=== PATIENT | male | born 1955 | race Caucasian/White ===

== ENCOUNTER 2019-04-08 02:14 | Outpatient (CLI) | payer MEDICAID, SELFPAY ==
--- NOTE | 2019-04-14 12:48 | HOLTER_ITS ---
HOLTER MONITOR DATE OF DICTATION April 14, 2019 STUDY INDICATIONS: Palpitations. REQUESTING PROVIDER Estrada Brito M.D. FINDINGS The patient was monitored for two days. Baseline sinus rhythm. Average heart rate 73 beats per minute, range 44 to 130 beats per minute. Occasional PVCs, 1197. No VT. Rare PACs. 2 atrial runs, longest 5 beats, fastest 127 beats per minute. No pauses greater than 3 seconds. No higher degree heart block. 6 patient events, none of these events correlated with arrhythmias. FINAL INTERPRETATION Occasional PVCs, asymptomatic. Tay Blunt M.D. KAIDEN/eliseo T - 04/14/2019
== END 2019-04-08 02:34 ==
PROVIDERS: PCP Family Medicine; Visit Provider Family Medicine
DX: R00.2 Palpitations (principal); I49.3 Ventricular premature depolarization; I49.1 Atrial premature depolarization
CPT/HCPCS: 93225

== ENCOUNTER 2019-04-13 16:31 | Outpatient (CLI) | payer MEDICAID, SELFPAY | END 2019-04-13 16:51 | PROVIDERS: PCP Family Medicine; Visit Provider Family Medicine | DX: R00.2 Palpitations (principal); I49.3 Ventricular premature depolarization; I49.1 Atrial premature depolarization | CPT/HCPCS: 93226 ==

== ENCOUNTER 2019-12-10 08:02 | Outpatient (CLI) | payer MEDICAID, SELFPAY ==
[2019-12-10] MEDS: Inhaler, Assist Device 1 EACH MC (11:50)
[2019-12-10] MEDS: Albuterol HFA 18 GM 200 PUFF INH IH (11:51)
--- NOTE | 2019-12-10 13:12 | PFT_ITS ---
PULMONARY FUNCTION TEST REPORT DATE OF SERVICE: December 10, 2019 REQUESTING PROVIDER: Estrada Brito M.D. Spirometry shows no evidence of obstructive airways disease, no bronchodilator response. Lung volumes incomplete testing, patient declined to do plethysmography due to claustrophobia. Flow vital capacity was normal. Diffusion capacity normal. Airways resistance not measured. IMPRESSION: No evidence of obstructive airways disease. One cannot comment on possible underlying restriction without total lung capacity measurement. Clinical correlation therefore recommended. JONATAN/carlos eduardo D/
== END 2019-12-10 08:22 ==
PROVIDERS: PCP Family Medicine; Visit Provider Family Medicine
DX: R06.00 Dyspnea, unspecified (principal)
CPT/HCPCS: 94060; 94729

== ENCOUNTER 2020-04-19 11:17 | Outpatient (CLI) | payer MEDICAID, SELFPAY ==
--- NOTE | 2020-04-19 09:45 | DI.RAD_ITS ---
EXAM: XR KNEE RT 2V AP,LAT CLINICAL HISTORY: right knee pain TECHNIQUE: COMPARISON: No exams were available for comparison FINDINGS: Two views were obtained. There is narrowing of the medial tibiofemoral cartilaginous joint space. R emainder of the cartilaginous joint spaces appear fairly well maintained. There is a probable small anteriorly located loose joint body seen on lateral view. No bony abnormality seen. IMPRESSION: DJD medial tibiofemoral joint, probable small loose joint body.
== END 2020-04-19 11:37 ==
PROVIDERS: PCP Family Medicine; Referring Provider Family Medicine; Visit Provider Physician Assistant
DX: M25.561 Pain in right knee (principal); M23.41 Loose body in knee, right knee; M17.11 Unilateral primary osteoarthritis, right knee
CPT/HCPCS: 73560

== ENCOUNTER 2020-05-23 10:22 | Outpatient (REF) | payer MEDICAID, SELFPAY | END 2020-05-23 10:42 | LOC: LBN 10:22 | PROVIDERS: PCP Family Medicine; Visit Provider Urology | DX: N40.1 Benign prostatic hyperplasia with lower urinary tract symptoms (principal) | CPT/HCPCS: 84153 ==

== ENCOUNTER 2021-01-04 02:54 | Outpatient (CLI) | payer MEDICAID, SELFPAY ==
[2021-01-04 09:27] LABS: Calculated LDL 144 mg/dL (<100); Cholesterol 214 mg/dL (<200); HDL Cholesterol 39 mg/dL (40-60); Triglyceride 158 mg/dL (<150)
== END 2021-01-04 02:55 | disposition home or self-care (01) ==
LOC: LBO 02:54
PROVIDERS: Nurse Practitioner Family; PCP Family Medicine; Visit Provider Family Medicine
DX: E78.5 Hyperlipidemia, unspecified (principal); N40.1 Benign prostatic hyperplasia with lower urinary tract symptoms; R39.14 Feeling of incomplete bladder emptying; Z12.5 Encounter for screening for malignant neoplasm of prostate
CPT/HCPCS: 36415; 80061; 84154

== ENCOUNTER 2021-02-02 05:00 | Outpatient (CLI) | payer MEDICAID, SELFPAY ==
--- NOTE | 2021-02-02 08:30 | DI.MRI_ITS ---
EXAM: MR LOWER JOINT RT WO CLINICAL HISTORY: KNEE PAIN, INTERNAL DERANGEMENT,M 23.91. TECHNIQUE: Multiplanar multisequence MRI was performed. COMPARISON: CR XR KNEE RT 2V AP,LAT from 04/19/2020 FINDINGS: There is a large joint effusion. A bony projection is seen the anterior tibia, anterior to the ACL attachment. There is a bony density seen in the soft tissues superior to this level which does not a ppear to be within the joint space. There is some fluid within the anterior cruciate ligament but no evidence of a full-thickness tear. The collateral ligaments and extensor mechanism appear intact. The lateral meniscus appears intact. The body of the medial meniscus is diminutive and peripherally displaced. There is a large amount of abnormal high signal seen with seen within the body. There is a focal radially oriented tear in the body. Cartilage: There is a focal linear defect in the cartilage at the apex of the patella extending down to but not involving underlying bone. There is cartilage thinning extending down to bone involving me dial femoral condyle and medial tibial plateau. There is some adjacent bony edema. The cartilage over lying the lateral femoral condyle and lateral tibial plateau appear intact. IMPRESSION: Degenerative changes of the medial femoral tibial joint space a chondromalacia extending down to bone . There are degenerative changes of the medial meniscus with superimposed tear in the body. A large j oint effusion is seen. There is a small small focal cartilage defect at the apex of the patella. DATA REPOSITORY:
== END 2021-02-02 05:20 ==
PROVIDERS: PCP Family Medicine; Visit Provider Student in an Organized Health Care Education/Training Program
DX: M17.11 Unilateral primary osteoarthritis, right knee (principal); M25.461 Effusion, right knee; S83.241A Other tear of medial meniscus, current injury, right knee, initial encounter
CPT/HCPCS: 73721

== ENCOUNTER 2021-02-27 09:52 | Outpatient (REF) | payer MEDICAID, SELFPAY ==
[2021-02-27 13:22] LABS: Abs Immature Grans 0.01 10^3/uL (0.0-0.06); Absolute Basophil Count 0.05 10^3/uL (0.0-0.2); Absolute Eosinophil Count 0.17 10^3/uL (0.0-0.7); Absolute Lymphocyte Count 2.73 10^3/uL (1.2-3.4); Absolute Monocyte Count 0.42 10^3/uL (0.1-0.8); Absolute Neutrophil Count 2.23 10^3/uL (1.2-6.7); Basophils % 0.9; HCT 46.6 % (40.0-50.0); HGB 15.4 g/dL (13.5-17.5); Immature Grans % 0.2; Lymphocytes % 48.7; MCH 31.8 pg (27.0-33.0); MCV 96.1 fL (80-95); MPV 10.3 fL (8.0-11.0); Monocytes % 7.5; Neutrophils % 39.7; Nucleated RBC 0 %; Platelet Count 188 10^3/uL (130-400); RBC 4.85 10^6/uL (4.36-5.78); RDW 12.4 % (11.8-14.1); RDW-SD 43.3 fL; WBC 5.61 10^3/uL (4.4-10.8)
[2021-02-27 13:31] LABS: ESR 6 mm//hr (0-20)
[2021-02-27 13:45] LABS: ALT 46 U/L (16-63); AST 30 U/L (15-37); Albumin 4.3 g/dL (3.4-5.0); Alkaline Phosphatase 87 U/L (46-116); Anion Gap 9.3 mmol/L (3-11); BUN 21 mg/dL (7-18); Bilirubin, Total 0.6 mg/dL (0.2-1.0); C-Reactive Protein 0.07 mg/dL (0.0-0.3); CO2 26.7 mmol/L (21.0-32.0); CREATININE 1.2 mg/dL (0.70-1.30); Calcium 9.3 mg/dL (8.5-10.1); Chloride 108 mmol/L (98-107); Glucose 99 mg/dL (74-106); Potassium 4.5 mmol/L (3.5-5.1); Sodium 144 mmol/L (136-145)
[2021-02-28 15:09] LABS: ANA Interpretation Negative (Negative)
== END 2021-02-27 09:53 | disposition home or self-care (01) ==
LOC: LBN 09:52
PROVIDERS: PCP Family Medicine; Visit Provider Emergency Medicine
DX: M25.59 Pain in other specified joint (principal); T69.1XXD Chilblains, subsequent encounter
CPT/HCPCS: 80053; 85652; 85025; 86038; 86140

== ENCOUNTER 2022-01-03 14:28 | Outpatient (CLI) | payer MEDICAID, SELFPAY ==
--- NOTE | 2022-01-03 14:00 | DI.RAD_ITS ---
Exam(s) XR KNEE RT 1V XR STANDING ALIGNMENT EXAM: XR STANDING ALIGNMENT and XR knee RT 1 V CLINICAL HISTORY: PRE OP R TKA. TECHNIQUE: 2D digital imaging was performed. COMPARISON: CR XR KNEE RT 1V from 01/03/2022 FINDINGS: BONES: No acute fracture is present. No bony destructive lesion is seen. There are degenerative maya es of the right knee with joint space narrowing and periarticular spurring predominantly in the media l femoral tibial joint space. There is a right knee joint effusion. There is a well corticated osse ous density anterior to the tibial spine on the lateral view of the right knee which may represent a loose body. The left knee shows mild narrowing of the medial joint space. There is no significant l eg length discrepancy. SOFT TISSUE: There are surgical clips inferior to the pelvis likely reflecting prior vasectomy. IMPRESSION: Osteoarthritis of the right knee. DATA REPOSITORY: RADIATION DOSE DELIVERED:
== END 2022-01-03 14:29 | disposition home or self-care (01) ==
LOC: DIORS 14:28
PROVIDERS: PCP Family Medicine; Referring Provider Family Medicine; Visit Provider Physician Assistant Surgical
DX: M25.561 Pain in right knee (principal); M17.11 Unilateral primary osteoarthritis, right knee; M25.461 Effusion, right knee; M23.8X1 Other internal derangements of right knee
CPT/HCPCS: 73560; 77073

== ENCOUNTER 2022-01-14 02:03 | Outpatient (CLI) | payer MEDICAID, SELFPAY ==
[2022-01-14 08:53] LABS: HCT 44.9 % (40.0-50.0); HGB 14.5 g/dL (13.5-17.5); MCH 31.4 pg (27.0-33.0); MCHC 32.3 % (32.0-36.0); MCV 97.2 fL (80-95); MPV 9.8 fL (8.0-11.0); Platelet Count 163 10^3/uL (130-400); RBC 4.62 10^6/uL (4.36-5.78); RDW 12.8 % (11.8-14.1); RDW-SD 45.2 fL; WBC 5.56 10^3/uL (4.4-10.8)
[2022-01-14 09:26] LABS: Anion Gap 6.6 mmol/L (3-11); BUN 19 mg/dL (7-18); CO2 29.4 mmol/L (21.0-32.0); CREATININE 1.2 mg/dL (0.70-1.30); Calcium 8.8 mg/dL (8.5-10.1); Chloride 105 mmol/L (98-107); Glucose 113 mg/dL (74-106); Potassium 4.8 mmol/L (3.5-5.1); Sodium 141 mmol/L (136-145)
== END 2022-01-14 02:04 | disposition home or self-care (01) ==
LOC: LBO 02:03
PROVIDERS: PCP Family Medicine; Visit Provider Student in an Organized Health Care Education/Training Program
DX: Z01.818 Encounter for other preprocedural examination; M25.561 Pain in right knee; M23.8X1 Other internal derangements of right knee; Z01.812 Encounter for preprocedural laboratory examination
CPT/HCPCS: 36415; 80048; 85027

== ENCOUNTER 2022-01-14 03:03 | Outpatient (CLI) | payer MEDICAID, SELFPAY ==
[2022-01-14 10:36] LABS: Source Nasal/Nares
[2022-01-14 14:08] LABS: COVID-19 PCR Negative (Negative)
== END 2022-01-14 03:04 | disposition home or self-care (01) ==
LOC: LBO 03:03
PROVIDERS: PCP Family Medicine; Visit Provider Student in an Organized Health Care Education/Training Program
DX: Z20.822 Contact with and (suspected) exposure to COVID-19 (principal); Z01.818 Encounter for other preprocedural examination
CPT/HCPCS: 87635

== ENCOUNTER 2022-01-15 07:50 | Day surgery (SDC) | payer MEDICAID, SELFPAY ==
[2022-01-15] VITALS (10 sets, daily range): BP systolic 106–135; BP diastolic 64–95; PULSE 54–72; RESP 13–19; TEMP 36–36.4; O2SAT 94–100; BMI 25.9
--- NOTE | 2022-01-15 06:20 | W.ANESPRE ---
General Info Date of Service Date Performed: 01/15/22 Height: 6 ft 1 in Weight: 89.358 kg Body Mass Index (BMI): 25.9 Surgical Procedure: Operation Date: 01/15/22 09:55 Proposed Procedure Side Surgeon p Knee Total Arthroplasty Right Tacho Levi MD Meds Allergies and Home Medications Allergies Allergy/AdvReac Type Severity Reaction Status Date / Time chocolate flavor Allergy Severe RASH, H/A Verified 01/15/22 08:10 vardenafil HCl [From Levitra] Allergy Severe SWELLING, Verified 01/15/22 08:10 FLUSHING hydrocodone bitartrate AdvReac Severe H/A Verified 01/15/22 08:10 [From Vicodin] sertraline AdvReac Severe TREMOR Verified 01/15/22 08:10 ezetimibe [From Zetia] AdvReac Intermediate dizziness Verified 01/15/22 08:10 lovastatin AdvReac Mild MYALGIAS Verified 01/15/22 08:10 Aylwgog-QBV-LyX Reductase AdvReac Mild severe Verified 01/15/22 08:10 Inhibitor muscle [Tjeazoa-Klz-Qbe Reductase cramps at Inhibitor] bedtime lactose AdvReac Unknown INTOLERANT Verified 01/15/22 08:10 Home Medication Medication Instructions Recorded ginkgo biloba leaf extract 60 mg 60 mg PO DAILY 03/15/14 tablet echinacea purpurea root 80 mg 80 mg PO BID PRN 10/24/14 capsule ibuprofen-diphenhydramine citrate 1 ea PO hs prn 10/24/14 200 mg-38 mg tablet (Advil PM) acetaminophen 500 mg tablet 1,000 mg PO Q4H PRN tab-cap 01/31/17 ibuprofen 400 mg tablet 400 mg PO Q6H PRN tab-cap 01/31/17 hydrocortisone 2.5 % topical cream 1 chauncey RC BID prn #30 g 03/26/17 with perineal applicator naproxen 500 mg tablet 500 mg PO BID PRN #60 tab 05/26/20 epinephrine 0.3 mg/0.3 mL 0.3 mg (0.3 mL) IM ONCE PRN #1 06/30/20 injection, auto-injector syringe omeprazole 20 mg capsule,delayed 20 mg PO DAILY #90 cap 01/26/21 release amlodipine 5 mg tablet 5 mg PO DAILY #90 tab 02/27/21 lorazepam 1 mg tablet See Rx Instructions PO BID PRN #30 07/04/21 tab tamsulosin 0.4 mg capsule 0.8 mg PO DAILY #180 cap 10/23/21 aspirin 81 mg capsule 81 mg PO DAILY 01/03/22 Current Visit Medications: Current Medications Generic Name Dose Route Start Last Admin Trade Name Freq PRN Reason Stop Dose Admin Acetaminophen 1,000 mg 01/15/22 06:00 Acetaminophen 500 Mg Tab PO 01/15/22 18:00 PREOP LEIGHTON Celecoxib 400 mg 01/15/22 06:00 Celecoxib 200 Mg Cap PO 01/15/22 18:00 PREOP LEIGHTON Gabapentin 300 mg 01/15/22 06:00 Gabapentin 300 Mg Cap PO 01/15/22 18:00 PREOP LEIGHTON Tranexamic Acid 1,000 mg/ 60 mls @ 360 mls/hr 01/15/22 06:00 Sodium Chloride IVPB 01/15/22 18:00 PREOP LEIGHTON Tranexamic Acid 1,000 mg/ 60 mls @ 360 mls/hr 01/15/22 06:00 Sodium Chloride IVPB 01/15/22 18:00 DIRECTED LEIGHTON PFSH Active Problems Active Problems: Problem Status Onset Code Skin lesions, generalized L98.9 Lower extremity neuropathy G57.90 Screening for colon cancer Z12.11 Ischemia of foot I99.8 Frostbite of foot T33.829A BPH (benign prostatic hyperplasia) N40.0 Actinic Keratosis L57.0 Internal derangement of right knee ~01/2020 M23.91 Degenerative joint disease of right knee ~01/2020 M17.11 Lower urinary tract symptoms (LUTS) R39.9 Diastasis recti M62.08 Dyspnea R06.00 Insomnia G47.00 Genital herpes simplex A60.00 Peyronie's disease 10/05/13 N48.6 Chilblains T69.1XXA Palpitations R00.2 Depressive disorder 10/16/99 F32.9 Erectile dysfunction 10/21/14 N52.9 Gastroesophageal reflux disease 07/13/11 K21.9 Herpes zoster without complication 03/26/17 B02.9 Hyperlipidemia 10/16/99 E78.5 Irritable colon K58.9 ARBOLEDA (nonalcoholic steatohepatitis) 03/16/18 K75.81 Peyronie's disease 10/05/13 N48.6 Surgical History Surgical History Appendectomy Repair of inguinal hernia (~1985) left Tobacco Smoking/Tobacco Use Status: Never Passive smoking exposure: Yes Second hand exposure: Yes Alcohol Alcohol Intake: current Alcohol intake frequency: a few times a week Alcohol type: beer Substance Use Substance use: Never Substance use type: does not use Vital Signs and Lab Results Vital Signs Most Recent Vital Signs in EMR: Temp Pulse Resp BP Pulse Ox 36 C L 70 16 135/95 H 100 01/15/22 08:24 01/15/22 08:24 01/15/22 08:24 01/15/22 08:24 01/15/22 08:24 Lab Results Blood Type / Crossmatch: No Data to Display Complete Blood Count: White Blood Count 5.56 10^3/uL (4.4-10.8) 01/14/22 08:16 01/14/22 Red Blood Count 4.62 10^6/uL (4.36-5.78) 01/14/22 08:16 01/14/22 Hemoglobin 14.5 g/dL (13.5-17.5) 01/14/22 08:16 01/14/22 Hematocrit 44.9 % (40.0-50.0) 01/14/22 08:16 01/14/22 Platelet Count 163 10^3/uL (130-400) 01/14/22 08:16 01/14/22 Complete Metabolic Panel: Sodium Level 141 mmol/L (136-145) 01/14/22 08:16 01/14/22 Potassium Level 4.8 mmol/L (3.5-5.1) 01/14/22 08:16 01/14/22 Chloride Level 105 mmol/L (98-107) 01/14/22 08:16 01/14/22 Carbon Dioxide Level 29.4 mmol/L (21.0-32.0) 01/14/22 08:16 01/14/22 Blood Urea Nitrogen 19 mg/dL (7-18) H 01/14/22 08:16 01/14/22 Creatinine 1.2 mg/dL (0.70-1.30) 01/14/22 08:16 01/14/22 Estimated GFR/1.73 m2 >= 60.00 (mL/min/1.73m2) 01/14/22 08:16 01/14/22 Calcium Level 8.8 mg/dL (8.5-10.1) 01/14/22 08:16 01/14/22 Glucose Level 113 mg/dL (74-106) H 01/14/22 08:16 01/14/22 Liver Function Panel: No Data to Display Coagulation Panel: No Data to Display Cardiac Panel: No Data to Display Arterial Blood Gas: No Data to Display Venous Blood Gas: No Data to Display Pancreas Panel: No Data to Display Thyroid Panel: No Data to Display Infectious Disease: Coronavirus (COVID-19)(PCR) Negative (Negative) 01/14/22 08:24 01/14/22 Coronavirus 2019 Source Nasal/Nares 01/14/22 08:24 01/14/22 Blood Cultures: No Data to Display Toxicology Panel: No Data to Display Anesthesia Assessment and Plan Anesthesia History Personal History: No History of Anesthesia Complications Family History: No Family History of Anesthesia Complications Exercise Tolerance Exercise Tolerance: Metabolic Equivalents>4 Cardiac & Pulmonary Exam Cardiac Exam: Normal S1/S2 Heart Sounds Pulmonary Exam: Clear Bilateral Breath Sounds Implantable Cardiac Device Does patient have a Pacemaker or an ICD?: No Airway Exam Known Difficult Airway: No Mallampati Class: 2 Mouth Opening: Normal (> 3cm) Thyromental Distance: Greater than 3 cm Neck Range of Motion: Full ROM Neck Circumference: Normal Teeth Condition: Normal Dentition ASA Classification ASA Score: ASA 2 Emergency Case?: No NPO Status NPO Status: NPO Clears >2 hours, Solids >8 hours Anesthesia Plan Resuscitation Status: Full Code Anesthesia Technique: Spinal Anesthesia Airway Planned: Natural Airway Pain Management: Surgeon and patient request nerve block Monitors Used: Standard Monitors Preoperative Comments:: 66 yo male for TKA. Sig PMHx: anxiety/depression (lorazepam), HTN (amlodipine), palpitations, ARBOLEDA, GERD (omeprazole), never smoker, occ EtOH. Extremely anxious. Discussed risks, benefits of spinal vs general. He nervous about having a spinal due to stories of how badly it hurts. We also talked about GA, but he is unhappy about the idea of having an LMA/ETT. We went into additional depth about the spinal and the GA. Additional time was given to allow him to think about the plan. after discussion with his daughter he would like to proceed with a spinal.
--- NOTE | 2022-01-15 07:26 | DSE_ITS ---
Documented by User: Opal Neil 01/15/22 13:07 DS: Diagnosis Discharge Diagnosis (1) Degenerative joint disease of right knee: Status: Acute Discharge Plan Disposition Patient Disposition: HOME Condition: Good Discharge Details Reason For Visit: Right knee DJD Attending Provider: Tacho Levi Primary Care Provider: Christiano Cardenas Home Meds and New Rx's Prescriptions: New acetaminophen 500 mg tablet 1,000 mg PO Q8H PRN (Reason: pain) Qty: 90 3RF aspirin 81 mg tablet,delayed release (DR/EC) 81 mg PO BID Qty: 60 0RF celecoxib 200 mg capsule 200 mg PO BID PRN (Reason: pain) Qty: 60 1RF gabapentin 300 mg capsule 300 mg PO QHS Qty: 7 0RF oxycodone 5 mg tablet 5 mg PO Q4H Qty: 18 0RF Continued lorazepam 1 mg tablet See Rx Instructions PO BID PRN (Reason: anxiety) Qty: 30 0RF Dose Instruction: .5-1 tab PO BID PRN; Rx Instructions: .5-1 tab PO BID PRN; amlodipine 5 mg tablet 5 mg PO DAILY Qty: 90 3RF tamsulosin 0.4 mg capsule 0.8 mg PO DAILY Qty: 180 3RF Rx Instructions: dose increase 10/23/21 epinephrine 0.3 mg/0.3 mL auto-injector 0.3 mg IM ONCE PRN (Reason: anaphylaxis) Qty: 1 0RF Rx Instructions: DISPENSE ONE PACKAGE ginkgo biloba leaf extract 60 MG tablet 60 mg PO DAILY 0RF echinacea purpurea root 80 MG capsule 80 mg PO BID PRN 0RF hydrocortisone 30 GM cream with perineal applicator 1 chauncey RC BID prn Qty: 30 3RF omeprazole 20 mg capsule,delayed release(DR/EC) 20 mg PO DAILY Qty: 90 3RF Discontinued aspirin 81 mg capsule 81 mg PO DAILY 0RF Advil PM 1 EACH tablet 1 ea PO hs prn 0RF acetaminophen 500 MG tablet 1,000 mg PO Q4H PRN 0RF ibuprofen 400 MG tablet 400 mg PO Q6H PRN 0RF naproxen 500 mg tablet 500 mg PO BID PRN (Reason: pain) Qty: 60 0RF Rx Instructions: Take 1 tablet by mouth with food twice a day as needed for headache pain Discharge Instructions Additional Instructions: Total Knee Discharge Instructions Activity: The most important activity is to walk. You should try to take short walks a few times a day. It is important that when resting you work on keeping the knee straight. Avoid putting a pillow behind the knee as this will encourage flexion. Work on range of motion exercises as provided by Physical Therapy. - Start outpatient physical therapy around 2 weeks. - You should wear the HANK hose on both legs for 2 weeks. You may remove these at night. You may also use any compression sock in place of the HANK hose. - Utilize [employer] to review exercises, see videos on exercises and obtain basic information pertaining to your surgery and your recovery. Dressing: Remove the Tyshawn wrap by 2 days after your surgery and put on the HANK stocking given to you from the hospital. Keep the surgical dressing (underneath the TYSHANW wrap) in place for at least one week. After the first week it may be removed and replaced with light gauze and tape or nothing. The wound and dressing may get wet after 3 days but avoid soaking the dressing or otherwise it will need to be changed. Many people prefer covering the dressing with cling wrap (saran wrap) to minimize it from getting soaked. If it gets wet, just pat dry. If it starts to peel off then it will need to be changed. Medications: - You should take Tylenol and anti-inflammatory Celebrex as your primary pain control medications. If the Celebrex is too expensive or not covered, please call the office for another alternative (Advil/Ibuprofen or Naproxen/Aleve) - You have been prescribed a stronger pain medication Oxycodone for breakthrough pain, take as needed as prescribed. - You should continue your stomach acid reduction agent Omeprazole to help reduce stomach acid and reflux. - You have been prescribed Gabapentin to take at night for restlessness and nerve pain. - You will be taking Aspirin 81mg twice a day for DVT prevention unless instructed otherwise. - If you have constipation you should take Colace or Miralax (both [id number]). It takes most people 3-4 days to have a bowel movement. Follow-up: 2 weeks If you have any acute concerns or questions, please do not hesitate to contact the office at [phone]. You may contact Dr. Levi with any questions after hours through the hospital at [phone] or on his cell phone at [phone]. Stand Alone Forms: Anesthesia Discharge Inst., Anes.Nerve Block Instructions, Naa Stark ([facility]) Referrals: Tacho Levi MD [ [facility] ST[facility]FF PHYSICIAN] - Equipment/Supplies: Walker Activity:: Elevate Shower/Bathe:: Cover Diet:: As Tolerated Discharge Orders Discharge Orders: Discharge Order (Routine); Ordered 01/15/22 Ordered By: Tacho Levi DS: Data Vitals/I&O Vitals and I&O: Intake & Output 01/14/22 01/14/22 01/15/22 11:59 23:59 11:59 Weight 89.358 kg 89.358 kg PFSH All Active Problems Skin lesions, generalized (Acute) Lower extremity neuropathy (Acute) Screening for colon cancer (Acute) Ischemia of foot (Acute) Frostbite of foot (Acute) BPH (benign prostatic hyperplasia) (Chronic) Actinic Keratosis (Acute) Internal derangement of right knee (Acute ~01/2020) Likely involving the medial meniscus Degenerative joint disease of right knee (Acute ~01/2020) Lower urinary tract symptoms (LUTS) (Acute) Diastasis recti (Acute) Dyspnea (Acute) Insomnia (Chronic) Genital herpes simplex (Acute) Peyronie's disease (Chronic 10/05/13) Dr Velazco Chilblains (Chronic) Palpitations (Acute) Depressive disorder (Chronic 10/16/99) anxiety Erectile dysfunction (Chronic 10/21/14) Gastroesophageal reflux disease (Chronic 07/13/11) 05/27 EGD ([facility]) Herpes zoster without complication (Chronic 03/26/17) Hyperlipidemia (Chronic 10/16/99) Irritable colon (Chronic) ARBOLEDA (nonalcoholic steatohepatitis) (Chronic 03/16/18) Peyronie's disease (Chronic 10/05/13) Dr Velazco Surgical History Appendectomy Repair of inguinal hernia (~1985) left Family History Mother Neoplasm BREAST Father Diabetes Heart disease Hyperlipidemia Sister Essential hypertension Brother No problems noted. Son No problems noted. Son No problems noted. Daughter No problems noted. Social History Smoking/Tobacco Use Status: Never Second Hand Exposure: Yes Smoking risk assessment performed?: Yes Alcohol Intake: current Alcohol Intake frequency: a few times a week Alcohol type: beer Drug use: Never Substance use type: does not use Household members: spouse Housing: house Communication Needs: None current occupation: [employer] Pets and animals: Yes Pets and animals: cat(s) and dog(s) Sexually active: Yes Do you think of yourself as: straight/heterosexual Current gender identity: female What is your relationship status?: How often do you talk on the phone with friends or family?: once per week How often do you get together with friends or relatives?: once per week How often do you attend quaker or nondenominational services?: 4 or more times per year Do you belong to any clubs or organized social groups?: no Panel score (0-1 are the most socially isolated patients): 2 Seatbelt use: always Drive intox or ride w/intox driver trainer: No Do you feel safe at home: Yes Do you feel safe in your relationship?: Yes Documented by User: Tacho Levi MD 01/15/22 16:08 DS: Diagnosis Discharge Diagnosis (1) Degenerative joint disease of right knee: Status: Acute Discharge Plan Disposition Patient Disposition: HOME Condition: Good Discharge Details Reason For Visit: Right knee DJD Attending Provider: Tacho Levi Primary Care Provider: Christiano Cardenas Home Meds and New Rx's Prescriptions: New acetaminophen 500 mg tablet 1,000 mg PO Q8H PRN (Reason: pain) Qty: 90 3RF aspirin 81 mg tablet,delayed release (DR/EC) 81 mg PO BID Qty: 60 0RF celecoxib 200 mg capsule 200 mg PO BID PRN (Reason: pain) Qty: 60 1RF gabapentin 300 mg capsule 300 mg PO QHS Qty: 7 0RF oxycodone 5 mg tablet 5 mg PO Q4H Qty: 18 0RF Continued lorazepam 1 mg tablet See Rx Instructions PO BID PRN (Reason: anxiety) Qty: 30 0RF Dose Instruction: .5-1 tab PO BID PRN; Rx Instructions: .5-1 tab PO BID PRN; amlodipine 5 mg tablet 5 mg PO DAILY Qty: 90 3RF tamsulosin 0.4 mg capsule 0.8 mg PO DAILY Qty: 180 3RF Rx Instructions: dose increase 10/23/21 epinephrine 0.3 mg/0.3 mL auto-injector 0.3 mg IM ONCE PRN (Reason: anaphylaxis) Qty: 1 0RF Rx Instructions: DISPENSE ONE PACKAGE ginkgo biloba leaf extract 60 MG tablet 60 mg PO DAILY 0RF echinacea purpurea root 80 MG capsule 80 mg PO BID PRN 0RF hydrocortisone 30 GM cream with perineal applicator 1 chauncey RC BID prn Qty: 30 3RF omeprazole 20 mg capsule,delayed release(DR/EC) 20 mg PO DAILY Qty: 90 3RF Discontinued aspirin 81 mg capsule 81 mg PO DAILY 0RF Advil PM 1 EACH tablet 1 ea PO hs prn 0RF acetaminophen 500 MG tablet 1,000 mg PO Q4H PRN 0RF ibuprofen 400 MG tablet 400 mg PO Q6H PRN 0RF naproxen 500 mg tablet 500 mg PO BID PRN (Reason: pain) Qty: 60 0RF Rx Instructions: Take 1 tablet by mouth with food twice a day as needed for headache pain Discharge Instructions Additional Instructions: Total Knee Discharge Instructions Activity: The most important activity is to walk. You should try to take short walks a few times a day. It is important that when resting you work on keeping the knee straight. Avoid putting a pillow behind the knee as this will encourage flexion. Work on range of motion exercises as provided by Physical Therapy. - Start outpatient physical therapy around 2 weeks. - You should wear the HANK hose on both legs for 2 weeks. You may remove these at night. You may also use any compression sock in place of the HANK hose. - Utilize [employer] to review exercises, see videos on exercises and obtain basic information pertaining to your surgery and your recovery. Dressing: Remove the Tyshawn wrap by 2 days after your surgery and put on the HANK stocking given to you from the hospital. Keep the surgical dressing (underneath the TYSHAWN wrap) in place for at least one week. After the first week it may be removed and replaced with light gauze and tape or nothing. The wound and dressing may get wet after 3 days but avoid soaking the dressing or otherwise it will need to be changed. Many people prefer covering the dressing with cling wrap (saran wrap) to minimize it from getting soaked. If it gets wet, just pat dry. If it starts to peel off then it will need to be changed. Medications: - You should take Tylenol and anti-inflammatory Celebrex as your primary pain control medications. If the Celebrex is too expensive or not covered, please call the office for another alternative (Advil/Ibuprofen or Naproxen/Aleve) - You have been prescribed a stronger pain medication Oxycodone for breakthrough pain, take as needed as prescribed. - You should continue your stomach acid reduction agent Omeprazole to help reduce stomach acid and reflux. - You have been prescribed Gabapentin to take at night for restlessness and nerve pain. - You will be taking Aspirin 81mg twice a day for DVT prevention unless instructed otherwise. - If you have constipation you should take Colace or Miralax (both [id number]). It takes most people 3-4 days to have a bowel movement. Follow-up: 2 weeks If you have any acute concerns or questions, please do not hesitate to contact the office at [phone]. You may contact Dr. Levi with any questions after hours through the hospital at [phone] or on his cell phone at [phone]. Stand Alone Forms: Anesthesia Discharge Inst., Anes.Nerve Block Instructions, Naa Stark ([facility]) Referrals: Tacho Levi MD [ [facility] STAFF PHYSICIAN] - Equipment/Supplies: Walker Activity:: Elevate Shower/Bathe:: Cover Diet:: As Tolerated Discharge Orders Discharge Orders: Discharge Order (Routine); Ordered 01/15/22 Ordered By: Tacho Levi DS: Summary Time Spent with Patient providing and/or coordinating discharge services: Less than 30 minutes Status at Discharge Functional status at discharge: uses cane/walker Overall status at discharge: patient is progressing back to baseline Mental Status: mental status grossly normal Speech and Movement: speech and movement normal Mood: congruent mood Affect: normal affect Exam Psych Mental Status: mental status grossly normal Speech and Movement: speech and movement normal Mood: congruent mood Affect: normal affect [facility] All Active Problems Skin lesions, generalized (Acute) Lower extremity neuropathy (Acute) Screening for colon cancer (Acute) Ischemia of foot (Acute) Frostbite of foot (Acute) BPH (benign prostatic hyperplasia) (Chronic) Actinic Keratosis (Acute) Internal derangement of right knee (Acute ~01/2020) Likely involving the medial meniscus Degenerative joint disease of right knee (Acute ~01/2020) Lower urinary tract symptoms (LUTS) (Acute) Diastasis recti (Acute) Dyspnea (Acute) Insomnia (Chronic) Genital herpes simplex (Acute) Peyronie's disease (Chronic 10/05/13) Dr Velazco Chilblains (Chronic) Palpitations (Acute) Depressive disorder (Chronic 10/16/99) anxiety Erectile dysfunction (Chronic 10/21/14) Gastroesophageal reflux disease (Chronic 07/13/11) 05/27 EGD ([facility]) Herpes zoster without complication (Chronic 03/26/17) Hyperlipidemia (Chronic 10/16/99) Irritable colon (Chronic) ARBOLDEA (nonalcoholic steatohepatitis) (Chronic 03/16/18) Peyronie's disease (Chronic 10/05/13) Dr Velazco Surgical History Appendectomy Repair of inguinal hernia (~1985) left Family History Mother Neoplasm BREAST Father Diabetes Heart disease Hyperlipidemia Sister Essential hypertension Brother No problems noted. Son No problems noted. Son No problems noted. Daughter No problems noted. Social History Smoking/Tobacco Use Status: Never Second Hand Exposure: Yes Smoking risk assessment performed?: Yes Alcohol Intake: current Alcohol Intake frequency: a few times a week Alcohol type: beer Drug use: Never Substance use type: does not use Household members: spouse Housing: house Communication Needs: None current occupation: [employer] Pets and animals: Yes Pets and animals: cat(s) and dog(s) Sexually active: Yes Do you think of yourself as: straight/heterosexual Current gender identity: female What is your relationship status?: How often do you talk on the phone with friends or family?: once per week How often do you get together with friends or relatives?: once per week How often do you attend quaker or nondenominational services?: 4 or more times per year Do you belong to any clubs or organized social groups?: no Panel score (0-1 are the most socially isolated patients): 2 Seatbelt use: always Drive intox or ride w/intox driver trainer: No Do you feel safe at home: Yes Do you feel safe in your relationship?: Yes
[2022-01-15] MEDS: Gabapentin 300 MG CAP PO (08:35)
[2022-01-15] MEDS: Acetaminophen 500 MG TAB 1000 MG PO (08:37)
[2022-01-15] MEDS: Celecoxib 200 MG CAP 400 MG PO (08:40)
[2022-01-15] MEDS: Lactated Ringers 1,000 ML 80 ML IV (09:07)
[2022-01-15] MEDS: ceFAZolin 2 GM/50 ML BAG IVPB (09:43)
--- NOTE | 2022-01-15 09:59 | W.ANESNERVE ---
Nerve Block Single Injection Procedure Date and Time Date Performed: 01/15/22 Procedure Start: 09:59 Location Where Procedure Performed Procedure Location: Day Surgery Unit Reason Performed: Postoperative Analgesia Requesting Provider: Tacho Levi Timeout Performed Timeout Performed: No Monitoring Used ECG, Blood Pressure and SpO2 Sterility Sterility: Hand Hygiene, Surgical Cap, Surgical Mask, Sterile Gloves and Chlorhexidine Sedation Given During Procedure Sedation Given (Indicate Dose Given): Versed IV Dose:: 2 mg Patient Mental Status Patient Mental Status: Sedate with meaningful communication Nerve Block 1st Nerve Block: Laterality: Right Block Type: Adductor Canal Needle / Catheter Used: 100mm SonoPlex II Local Anesthetic Bolus (Indicate Dose Given): Lidocaine used for local infiltration of skin, Injected in 3-5ml increments after negative blood aspiration and Bupivacaine 0.375% Dose:: 10 mL Additives (Indicate Dose Given): None Ultrasound: Sterile probe cover and gel used Ultrasound Image Saved?: Yes Nerve Stimulator: Not Used Paresthesia: None Procedure Tolerated: No Complications Procedure Outcome: Successful Performed By: Ramsey Vasques
[2022-01-15] MEDS: Bupivacaine 0.25% Pres-Free 30 ML VIAL (10:13)
[2022-01-15] MEDS: Normal Saline 20 ML VIAL (10:15)
[2022-01-15] MEDS: Ketorolac 30 MG/ML VIAL (10:15)
--- NOTE | 2022-01-15 12:02 | W.ANESPOSTOP ---
Postoperative Evaluation Date, Time and Location Date Performed: 01/15/22 Time Performed: 12:02 Patient Location: PACU Vital Signs Most Recent Imported Vital Signs: Most Recent Vital Signs Temp Pulse Resp BP Pulse Ox 36.3 C L 54 L 14 107/64 95 01/15/22 11:55 01/15/22 11:55 01/15/22 11:55 01/15/22 11:55 01/15/22 11:55 Pain Score Most Recent Pain Score: Most Recent Pain Score Pain Level 0 01/15/22 11:55 Assessment Mental Status: Arousable with meaningful communication Airway and Respiratory Function: Patent airway with normal (patient baseline) respiratory exam Cardiovascular Function: Hemodynamically Stable Hydration Status: Adequately Hydrated Nausea & Vomiting: No Nausea or Vomiting Pain: Pain is tolerable per patient Peripheral Nerve Block: Regional nerve block not resolved at time of post operative discharge
--- NOTE | 2022-01-15 13:52 | IN_ITS ---
Date of service: 01/15/22 Time of Service: 13:52 PT Notes Visit Reasons: Right knee DJD Physical Therapy Day Surgery Initial Evaluation Date: 01/15/2022 Referring Doctor: TANI Mendez PT Orders: PT CONSULT: S/P Ortho surgery Precautions: WBAT on right LE with AD. Patient Profile/Admitting Diagnosis: Pavel is a 66-year-old male with degenerative joint disease of the right knee and is status post right total knee arthroplasty on postoperative day 0. PMHX: Surgical History? Appendectomy Repair of inguinal hernia (~1985) left Social History/Home Situation: Lives alone in a private home however patient will be going directly to his daughter's house for the next 2 weeks as he recovers. Daughter's house has 3 steps to enter with a rail on 1 side. Equipment Owned/DME: None Subjective: Agreeable to PT consult. Impressed with how well he was moving throughout consult. Denies headache, chest pain, and dizziness during session. Objective: General Observation: GISELLE wraps on right LE. Cryocuff on right knee. TEDS on left leg. Mental Status: Alert and oriented x 4 Pain: None ROM: Right Lower Extremity: Hip flexion WFL. Hip abduction WFL. Knee flexion 20 degrees to 100 degrees. Knee extension -20. Degrees ankle dorsiflexion WFL. Ankle plantarflexion WFL. Left Lower Extremity: Hip flexion WFL. Hip abduction WFL. Knee flexion WFL. Ankle dorsiflexion WFL. Ankle plantarflexion WFL. Strength: Right Lower Extremity: Hip flexors 5/5. Hip abductors 5/5. Knee flexors 3-/5. Knee extensors 3-/5. Ankle dorsiflexors 5/5. Ankle plantarflexors 5/5. Left Lower Extremity:Hip flexors 5/5. Hip abductors 5/5. Knee flexors 5/5. Knee extensors 5/5. Ankle dorsiflexors 5/5. Ankle plantarflexors 5/5. Sensation: Intact as to pain and light touch to bilateral lower extremities. Reports numbness on the right gluteal area. Bed Mobility/Transfers: Supine to sit supervision Sit to stand standby assist Stand to sit standby assist Bed to chair standby assist Gait: Instructed patient with level surface ambulation of 150 feet using front wheeled walker with step through gait pattern. Complained of momentary dizziness that subsided later on in the activity. Stairs: Able to tolerate 6 x 4 inch steps and 4 x 6 inch steps while holding onto 1 rail using step to gait pattern requiring contact-guard assist. Balance: Static Sitting: Normal Dynamic Sitting: Normal Static Standing: Fair Dynamic Standing: Fair Special Tests: Mobility Limitations Standardized Measure [facility] 6 clicks Basic Mobility Inpatient Short Form: Raw Score: 24 CMS Score: 0% deficit Informed Consent/Education: Patient instructed in purpose of PT consult. Education and training on initial set of exercises that can be done at home have been completed with patient. Assessment: Pavel requires the use of a front wheeled walker for all mobility ADL performance to maximize independence and reduce fall risk at home. We will have the support of his daughter and his son-in-law as he recovers at his daughter's house for the next 2 weeks. Patient presents with clinical signs and symptoms consistent with current/admitting diagnoses that have resulted to mobility limitations, gait in stability, generalized weakness, and impairment of motor control as demonstrated by the following impairment level findings: 1. Decreased strength to left right major muscle groups 2. Impaired standing balance 3. Limitation of joint range of motion in right knee Impairments are contributing to the following functional limitations: 1. Inability to safely ambulate without assistive device 2. Increase completion time for mobility ADL performance 3. Increased fall risk Patient is assessed as a 49964 moderatecomplexity based on the following: History: 66-year-old male with impairment level findings, functional limitations, and past medical history as indicated above Examination: Demonstrable impairment in strength, balance, and mobility level with underlying impairments and functional limitations as documented above Presentation: Evolving Decision Makin moderate complexity Goals: N/A. PT evaluation and 1-2 treatment sessions only for functional mobility training using recommended AD and for HEP instruction. Plan of Care/Treatment Plan: N/A. PT evaluation and 1-2 treatment session only for functional mobility training using recommended AD and for HEP instruction. DISCHARGE RECOMMENDATIONS: [] Home with no services [] [] Home with services [specify] [X] Home with outpatient PT. Home when medically cleared by orthopedic. Will benefit from outpatient PT services return to independent community ambulation without an assistive device. [] SNF for continued rehabilitation [] [] [facility] [employer] [] [] SNF versus LTC based on ability to participate and progress [] TREATMENT CODE/TIME: 34957 x 20 minutes, 69867 x 12 minutes beginning at 13:52 PM. Thank you for the opportunity to participate in the care of this patient. Rema Foster PT, DPT, CLT [facility] [place], [place]
--- NOTE | 2022-01-15 16:11 | W.PM.OP ---
Date of service: 01/15/22 Time of Service: 11:15 Operative Note Operative Note DATE OF PROCEDURE: 01/15/22 PRE-OP DIAGNOSIS: Right Knee Osteoarthritis POST-OP DIAGNOSIS: same PROCEDURE: Right Total Knee Replacement SURGEON: Tacho Levi DIRECTOR DIGITAL: Сергей Arroyo Refer to Anesthesia Record ESTIMATED BLOOD LOSS: 150 PATHOLOGY: none sent TOURNIQUET TIME: 0 COMPLICATIONS: None Patient was transported to: PACU Patient's condition: stable Implants: 1. Depuy Attune Cementless Cruciate Retaining Femoral Component, Size 8 2. Depuy Attune Cementless Rotating Platform Tibial Component, Size 8 3. Depuy Attune 8x7 CR/RP Poly 4. Depuy Attune Patellar Component, Size 41 Indications: I have seen Pavel in clinic for symptoms of knee arthritis, confirmed with radiographic findings. He has exhausted nonoperative methods and was having significant limitations in daily function and desired better function and less pain. I discussed the technical details of a knee replacement. I explained the risks of the procedure to include, but not limited to, bleeding, infection, pain, stiffness, fracture, damage to nerves and vessels, damage to muscles and tendons, loosening, need for repeat procedure, blood clot and cardiopulmonary demise. Despite these risks, Pavel elected to proceed. Findings: There was significant signs of arthritis throughout the knee, mostly medial. Procedure Description: Pavel was greeted in the preoperative holding area where the correct side was identified and marked. The consent was reviewed with the patient and signed. The history and physical was updated. All questions were answered. Preoperative medications were administered: Acetaminophen 1000mg, Celebrex 400mg, and Gabapentin 300mg. An adductor canal block was then administered by the anesthesia team in the PACU. He was taken back to the operating room. A spinal anesthestic was then administered. The patient was placed into the supine position on the operating room table. A nonsterile tourniquet was placed high onto the leg but only used for cementing. Posts were placed for positioning during the procedure. All bony prominences were well padded. Prophylactic antibiotics in the form of Cefazolin were administered. 1g of Tranxemic Acid was given intravenously within 30 minutes of incision. The right leg was then prepped with Chloraprep and draped in a standard fashion with impervious stockinette. A second prep with Chloraprep was performed prior to application of Iodine impregnated skin protection. A timeout to confirm correct identity, side and site, procedure, allergies, anesthesia, and medical concerns was performed. With the knee in some flexion, a midline incision was made overlying the knee. Full thickness skin flaps were raised once the extensor mechanism was encountered. These were raised medially and laterally. Any bleeding was controlled with electrocautery. Once the extensor mechanism was fully exposed, a medial parapatellar arthrotomy was performed in a flexed position. All bleeding from the arthrotomy and the geniculate arteries was coagulated. A medial subperiosteal peel was performed with electrocautery to the midcoronal plane. The fat pad was removed while keeping the patellar tendon protected. The anterior distal femur synovium was removed for later visualization. The ACL and PCL were resected and the anterior horn of the lateral meniscus was transected. The knee was then flexed with the patella everted. Using a step drill, and based on preoperative templating, the femoral canal was entered. This was done with a step drill without any difficulty. The intramedullary distal femoral cut guide was inserted, set to a 5 degree valgus cut and 8mm cut thickness. The distal femoral cut guide was then held in position and pinned. With the soft tissues protected, the distal cut was performed. This was passed over a few times to ensure a planar cut. I then turned attention to the tibia. The extramedullary guide was placed onto the leg. The distal aspect was slid medial to adjust for position of center of ankle and stay in line with shaft of the tibia. Approximately 3-5 degrees of posterior slope was kept in the proximal cutting guide. The center of the guide was aligned with the PCL. The stylus was used to assess cut thickness. The medial side, most involved side, was set for a 5mm cut, corresponding to 8mm laterally. This was then held in position and pinned into place with 2 additional pins and a cross pin for stability. The medial and lateral collateral ligaments were protected and the cut was performed. With this completed, it was assessed and noted to be of appropriate dimensions. The guide was removed. A spacer block was inserted and the knee was brought into extension. The 6mm spacer block provided full extension, without hyperextension and with stability of both the medial and lateral collateral ligaments was assessed. The pins from the femur and the tibia were then removed. The distal femur was then sized. The anterior stylus was placed onto the lateral ridge of the anterior femur. This indicated a size 8 femur. The external rotation of the guide was adjusted to 3 degrees to match the epicondylar axis, perpendicular to [place]?s line. The 4-in-1 cutting guide was the placed. The posterior medial femur cut was evaluated and appeared of good thickness. The spacer block was inserted underneath the cutting guide and stability was confirmed in 90 degrees of flexion. An eric wing was used to confirm appropriate position of the anterior cut to avoid notching. This cutting guide was ensured to be flush on the cut surface and then pinned into place with headed pins. While protecting the soft tissues, quad tendon, and collateral ligaments, the anterior and posterior cuts were performed with a saw. The central two pins were removed and the posterior and anterior chamfers were cut next. The notch-cutting guide was placed. This was pinned to lateralize the femoral component as much as possible while keeping it flush on the cut surface. This was then pinned into position. A reciprocating saw was used to make the notch cut. A rasp smoothed the cut surfaces. The medial and lateral menisci were removed. A trial femoral component was then inserted, impacted down to the cut surfaces, and the lug holes were drilled. A provisional trial tibial component was placed and the knee was brought through range of motion. The polyethylene was trialed until there was good flexion and extension with excellent stability to the medial and lateral collaterals. The patella was tracking without thumbs. A size 7mm polyethylene component provided the best range of motion and stability with less than 2mm gapping with medial and lateral stress and full extension without significant hyperextension. The tibial cut surface was fully exposed. The tibia was then sized as a 8. The tibia had been previously marked during trialing to correspond to the center of the tibial component to help with rotation. The trial was aligned to this сергей, approximately rotated to the medial 1/3rd of the tibial tubercle. The trial was pinned into place. The tibia was prepared with a reamer and a keel punch and lug holes. The knee was then brought into extension and the patella was measured as 31mm. Using the patellar clamp and cut guide, this was resected to a flat surface with at least 13mm of thickness remaining. The size 41 patella fit the best. This was oriented and then clamped into position. The lugs were drilled. The trial components were removed. The final components were opened on the back table. The periosteal and capsular tissues, especially posteriorly, around the knee were then systematically injected with a periarticular cocktail consisting of 50cc 0.25% Marcaine, 30mg Ketorolac, 20cc of Exparal and 50cc of injectable saline. The knee was thoroughly irrigated with a pulse lavage and dried. Irrisept was also used to irrigate the tissues. On the back table, with the implants opened, the cement was mixed. One batch of high viscosity cement was prepared with vacuum assistance. After the cement was ready a small amount was placed on the cut surface of the patella and the patellar button was clamped into position and held. While the cement was hardening, the cementless knee components were placed. Starting with the tibial component, the tibia was subluxed anteriorly and the lug holes of the component were lined up. The tibia was then impacted with an impactor and mallet until the tibial component was in contact with the tibia. The final polyethylene component was inserted. Then, the femoral component was inserted. The lug holes were aligned and the component was impacted into position. The knee was irrigated with Irrisept chlorhexadine solution. This was allowed to sit in the knee for 3 minutes. After the cement had finally cured, approximately 15min, the clamp was removed from the patella and the knee was taken through range of motion. The patella was tracking with a no-thumbs technique. The capsule was then reapproximated with a No. 1 Vicryl at multiple locations. The capsule was finally closed with a No. 2 Stratafix, barbed suture. The second dosing of 1g TXA was started. Deep tissues were then reapproximated with 0 Vicryl and 2-0 Vicryl. The skin was closed with a running 3-0 Monocryl in a subcuticular fashion. This was reinforced with skin glue. A Mepilex silver dressing was applied along with a rpgu-lw-qgylt GISELLE wrap. A CryoCuff was applied. Pavel was transferred to the hospital bed without difficulty an suffering no apparent complication. Pavel has a good prognosis. Physical therapy will start today and without restrictions, weight-bearing as tolerated. Aspirin 81mg BID will be used for DVT prophylaxis.
== END 2022-01-15 15:45 | disposition home or self-care (01) ==
LOC: SUR 07:50
PROVIDERS: PCP Family Medicine; Visit Provider Student in an Organized Health Care Education/Training Program
PROC: (CPT 27447; principal; 2022-01-15 09:45)
DX: M17.11 Unilateral primary osteoarthritis, right knee (principal); K75.81 Nonalcoholic steatohepatitis (NASH); F32.A Depression, unspecified; N40.0 Benign prostatic hyperplasia without lower urinary tract symptoms; K21.9 Gastro-esophageal reflux disease without esophagitis; E78.5 Hyperlipidemia, unspecified
CPT/HCPCS: 27447; 76942; 97163; 97530; J0690; J1100; J1885; J2001; J2250; J2405; J2704

== ENCOUNTER 2022-01-28 09:27 | Outpatient (CLI) | payer MEDICAID, SELFPAY ==
--- NOTE | 2022-01-28 09:19 | DI.RAD_ITS ---
Exam(s) XR KNEE RT 1V XR STANDING ALIGNMENT EXAM: XR STANDING ALIGNMENT CLINICAL HISTORY: 1st post op R TKA. TECHNIQUE: 2D digital imaging was performed. Standing AP views were performed from the pelvis throu gh the ankles. COMPARISON: CR XR STANDING ALIGNMENT from 01/03/2022 CR XR KNEE RT 1V from 01/03/2022 CR XR KNEE RT 1V from 01/28/2022 FINDINGS: BONES: No acute fracture is present. No bony destructive lesion is seen. JOINTS: Knees: Right knee: Status post placement of right total knee prosthesis. Joint effusion. Le ft knee: Mild narrowing of the medial femoral tibial joint space. Hips: Minimal acetabular spurring. Joint spaces are well maintained. The left femoral head projects few millimeters superior to the right. Ankles: Mild medial tibiotalar joint space narrowing. SOFT TISSUE: Anterior soft tissue swelling. IMPRESSION: Status post right knee replacement. Anterior soft tissue swelling. Minimal leg length discrepancy. DATA REPOSITORY: RADIATION DOSE DELIVERED:
== END 2022-01-28 09:28 | disposition home or self-care (01) ==
PROVIDERS: PCP Family Medicine; Visit Provider Student in an Organized Health Care Education/Training Program
DX: M25.561 Pain in right knee (principal); M17.11 Unilateral primary osteoarthritis, right knee; Z96.651 Presence of right artificial knee joint; M21.70 Unequal limb length (acquired), unspecified site; Z47.1 Aftercare following joint replacement surgery; M79.89 Other specified soft tissue disorders
CPT/HCPCS: 73560; 77073

== ENCOUNTER 2022-02-25 19:08 | Outpatient (REF) | payer MEDICAID, SELFPAY ==
[2022-02-25 13:12] LABS: Clarity Cloudy; Nucleated Cells 499 uL (0)
[2022-02-25 13:13] LABS: Mononuclear Cells 74 %; Polynuclear Cells 26 %
== END 2022-02-25 19:09 | disposition home or self-care (01) ==
LOC: LBN 19:08
PROVIDERS: PCP Family Medicine; Visit Provider Physician Assistant Surgical
DX: M25.061 Hemarthrosis, right knee; Z96.651 Presence of right artificial knee joint
CPT/HCPCS: 87070; 87205; 89051

== ENCOUNTER 2022-03-06 02:30 | Outpatient (CLI) | payer MEDICAID, SELFPAY | END 2022-03-06 02:31 | disposition home or self-care (01) | LOC: LBO 02:30 | PROVIDERS: PCP Family Medicine; Visit Provider Student in an Organized Health Care Education/Training Program ==

== ENCOUNTER 2022-03-06 03:01 | Outpatient (CLI) | payer MEDICAID, SELFPAY ==
[2022-03-06 12:05] LABS: Source Nasal/Nares
[2022-03-06 13:31] LABS: Hemoglobin A1C 6.1 % (<5.7)
[2022-03-06 14:38] LABS: Vitamin B12 275 pg/mL (193-986)
[2022-03-06 18:31] LABS: COVID-19 PCR Negative (Negative)
[2022-03-07 14:21] LABS: Albumin 61.7 % (55.8-66.1); Albumin g/dL 4.1 g/dL (3.6-5.2); Total Protein 6.6 g/dL (6.3-8.2)
== END 2022-03-06 03:02 | disposition home or self-care (01) ==
LOC: LBO 03:02
PROVIDERS: Student in an Organized Health Care Education/Training Program; PCP Family Medicine; Visit Provider Psychiatry & Neurology Neurology
DX: Z20.822 Contact with and (suspected) exposure to COVID-19 (principal); G62.9 Polyneuropathy, unspecified; R73.9 Hyperglycemia, unspecified
CPT/HCPCS: 36415; 87635; 82607; 83036; 84165; 84443

== ENCOUNTER 2022-03-08 10:24 | Day surgery (SDC) | payer MEDICAID, SELFPAY ==
[2022-03-08 10:25] VITALS: BP 153/91; PULSE 59; RESP 18; TEMP 36.5; O2SAT 99
--- NOTE | 2022-03-08 10:54 | W.ANESPRE ---
General Info Date of Service Date Performed: 03/08/22 Height: 6 ft 2 in Weight: 89.8 kg Body Mass Index (BMI): 25.4 Surgical Procedure: Operation Date: 03/08/22 12:10 Proposed Procedure Side Surgeon p Knee Manipulation of Knee Right Tacho Levi MD Meds Allergies and Home Medications Allergies Allergy/AdvReac Type Severity Reaction Status Date / Time bee venom protein (honey bee) Allergy Severe Anaphylaxis Verified 03/08/22 10:35 chocolate flavor Allergy Severe RASH, H/A Verified 03/08/22 10:35 vardenafil HCl [From Levitra] Allergy Severe SWELLING, Verified 03/08/22 10:35 FLUSHING hydrocodone bitartrate AdvReac Severe H/A Verified 03/08/22 10:35 [From Vicodin] sertraline AdvReac Severe TREMOR Verified 03/08/22 10:35 ezetimibe [From Zetia] AdvReac Intermediate dizziness Verified 03/08/22 10:35 lovastatin AdvReac Mild MYALGIAS Verified 03/08/22 10:35 Gouxaqp-VZU-EvJ Reductase AdvReac Mild severe Verified 03/08/22 10:35 Inhibitor muscle [Anfwobg-Wub-Pvd Reductase cramps at Inhibitor] bedtime lactose AdvReac Unknown INTOLERANT Verified 03/08/22 10:35 Home Medication Medication Instructions Recorded ginkgo biloba leaf extract 60 mg 60 mg PO DAILY 03/15/14 tablet echinacea purpurea root 80 mg 80 mg PO BID PRN 10/24/14 capsule hydrocortisone 2.5 % topical cream 1 chauncey RC BID prn #30 g 03/26/17 with perineal applicator epinephrine 0.3 mg/0.3 mL 0.3 mg (0.3 mL) IM ONCE PRN #1 06/30/20 injection, auto-injector syringe amlodipine 5 mg tablet 5 mg PO DAILY #90 tab 02/27/21 lorazepam 1 mg tablet See Rx Instructions PO BID PRN #30 07/04/21 tab tamsulosin 0.4 mg capsule 0.8 mg PO DAILY #180 cap 10/23/21 acetaminophen 500 mg tablet 1,000 mg PO Q8H PRN #90 tab 01/15/22 omeprazole 20 mg capsule,delayed 20 mg PO DAILY #90 cap 02/07/22 release aspirin 81 mg tablet,delayed 81 mg PO DAILY 02/27/22 release (Adult Low Dose Aspirin) magnesium oxide 400 mg PO DAILY 02/27/22 sertraline 50 mg tablet 50 mg PO DAILY #30 tab 03/01/22 gabapentin 300 mg capsule See Rx Instructions .ROUTE 03/06/22 .COMPLEX #60 cap acetaminophen 500 mg tablet 1,000 mg PO Q8H PRN #90 tab 03/08/22 ibuprofen 600 mg tablet 600 mg PO TID PRN #90 tab 03/08/22 oxycodone 5 mg tablet 5 mg PO Q4H #15 tab 03/08/22 Current Visit Medications: Current Medications Generic Name Dose Route Start Last Admin Trade Name Freq PRN Reason Stop Dose Admin Acetaminophen 1,000 mg 03/08/22 06:00 Acetaminophen 500 Mg Tab PO 03/08/22 16:00 PREOP [place]ON Celecoxib 400 mg 03/08/22 06:00 Celecoxib 200 Mg Cap PO 03/08/22 16:00 PREOP LEIGHTON Ringer's Solution 1,000 mls @ 80 mls/hr 03/08/22 06:00 IV 04/06/22 23:59 [facility]ION [facility] IV Miscellaneous Supplies 1 each 03/08/22 06:00 Iv Access IV 04/06/22 23:59 DIRECTED [place]ON Sodium Chloride 0 ml 03/08/22 06:00 Normal Saline Flush 10 Ml Syr IV 04/06/22 23:59 PRN PRN Sodium Chloride 0 ml 03/08/22 06:00 Normal Saline 10 Ml Vial IJ 04/06/22 23:59 DIRECTED PRN Sterile Water 0 ml 03/08/22 06:00 Water,Injection,Sterile 10 Ml Vial IJ 04/06/22 23:59 DIRECTED PRN PFSH Active Problems Active Problems: Problem Status Onset Code Adjustment disorder with depressed mood F43.21 Neuropathic pain M79.2 Peripheral neuropathy G62.9 Arthrofibrosis of total knee arthroplasty T84.82XA Hemarthrosis of knee, right M25.061 History of total right knee replacement 01/15/22 Z96.651 Skin lesions, generalized L98.9 Lower extremity neuropathy G57.90 Screening for colon cancer Z12.11 Ischemia of foot I99.8 Frostbite of foot T33.829A BPH (benign prostatic hyperplasia) N40.0 Actinic Keratosis L57.0 Degenerative joint disease of right knee ~01/2020 M17.11 Lower urinary tract symptoms (LUTS) R39.9 Diastasis recti M62.08 Dyspnea R06.00 Insomnia G47.00 Genital herpes simplex A60.00 Peyronie's disease 10/05/13 N48.6 Chilblains T69.1XXA Palpitations R00.2 Depressive disorder 10/16/99 F32.9 Erectile dysfunction 10/21/14 N52.9 Gastroesophageal reflux disease 07/13/11 K21.9 Herpes zoster without complication 03/26/17 B02.9 Hyperlipidemia 10/16/99 E78.5 Irritable colon K58.9 ARBOLEDA (nonalcoholic steatohepatitis) 03/16/18 K75.81 Peyronie's disease 10/05/13 N48.6 Surgical History Surgical History Appendectomy Repair of inguinal hernia (~1985) left Tobacco Smoking/Tobacco Use Status: Never Passive smoking exposure: Yes Second hand exposure: Yes Alcohol Alcohol Intake: current Alcohol intake frequency: a few times a week Alcohol type: beer Substance Use Substance use: Never Substance use type: does not use Vital Signs and Lab Results Vital Signs Most Recent Vital Signs in EMR: Most Recent Vital Signs Temp Pulse Resp BP Pulse Ox 36.5 C 59 L 18 153/91 H 99 03/08/22 10:25 03/08/22 10:25 03/08/22 10:25 03/08/22 10:25 03/08/22 10:25 Lab Results Blood Type / Crossmatch: No Data to Display Complete Blood Count: No Data to Display Complete Metabolic Panel: Hemoglobin A1c 6.1 % (<5.7) H 03/06/22 13:17 03/06/22 Liver Function Panel: No Data to Display Coagulation Panel: No Data to Display Cardiac Panel: No Data to Display Arterial Blood Gas: No Data to Display Venous Blood Gas: No Data to Display Pancreas Panel: No Data to Display Thyroid Panel: Thyroid Stimulating Hormone (TSH) 2.40 uIU/mL (0.36-3.74) 03/06/22 13:17 03/06/22 Infectious Disease: Coronavirus (COVID-19)(PCR) Negative (Negative) 03/06/22 09:11 03/06/22 Coronavirus 2019 Source Nasal/Nares 03/06/22 09:11 03/06/22 Blood Cultures: No Data to Display Toxicology Panel: No Data to Display Anesthesia Assessment and Plan Anesthesia History Personal History: No History of Anesthesia Complications Family History: No Family History of Anesthesia Complications Exercise Tolerance Exercise Tolerance: Metabolic Equivalents>4 Pertinent Negatives Pertinent Negatives: No Symptoms of GERD, No Major Cardiovascular Symptoms or Complaints and No Major Pulmonary Symptoms or Complaints Cardiac & Pulmonary Exam Cardiac Exam: Normal S1/S2 Heart Sounds Pulmonary Exam: Clear Bilateral Breath Sounds Implantable Cardiac Device Does patient have a Pacemaker or an ICD?: No Airway Exam Known Difficult Airway: No Mallampati Class: 2 Mouth Opening: Normal (> 3cm) Thyromental Distance: Greater than 3 cm Neck Range of Motion: Full ROM Neck Circumference: Normal Teeth Condition: Normal Dentition ASA Classification ASA Score: ASA 2 Emergency Case?: No NPO Status NPO Status: NPO Clears >2 hours, Solids >8 hours Anesthesia Plan Resuscitation Status: Full Code Anesthesia Technique: General Anesthesia Airway Planned: Natural Airway Pain Management: Surgeon and patient request nerve block Monitors Used: Standard Monitors
[2022-03-08] MEDS: Acetaminophen 500 MG TAB 1000 MG PO (10:57)
[2022-03-08] MEDS: Celecoxib 200 MG CAP 400 MG PO (10:57)
--- NOTE | 2022-03-08 11:06 | W.PM.DSUDISC ---
Discharge Plan Disposition Patient Disposition: HOME Condition: Good Discharge Details Reason For Visit: Right Knee Arthrofibrosis Attending Provider: Tacho Levi Primary Care Provider: Christiano Cardenas Home Meds and New Rx's Prescriptions: New acetaminophen 500 mg tablet 1,000 mg PO Q8H PRN (Reason: pain) Qty: 90 3RF ibuprofen 600 mg tablet 600 mg PO TID PRN (Reason: pain) Qty: 90 3RF oxycodone 5 mg tablet 5 mg PO Q4H Qty: 15 0RF Continued lorazepam 1 mg tablet See Rx Instructions PO BID PRN (Reason: anxiety) Qty: 30 0RF Dose Instruction: .5-1 tab PO BID PRN; Rx Instructions: .5-1 tab PO BID PRN; amlodipine 5 mg tablet 5 mg PO DAILY Qty: 90 3RF tamsulosin 0.4 mg capsule 0.8 mg PO DAILY Qty: 180 3RF Rx Instructions: dose increase 10/23/21 sertraline 50 mg tablet 50 mg PO DAILY Qty: 30 2RF epinephrine 0.3 mg/0.3 mL auto-injector 0.3 mg IM ONCE PRN (Reason: anaphylaxis) Qty: 1 0RF Rx Instructions: DISPENSE ONE PACKAGE magnesium oxide 400 mg magnesium tablet 400 mg PO DAILY 0RF aspirin [Adult Low Dose Aspirin] 81 mg tablet,delayed release (DR/EC) 81 mg PO DAILY 0RF ginkgo biloba leaf extract 60 MG tablet 60 mg PO DAILY 0RF echinacea purpurea root 80 MG capsule 80 mg PO BID PRN 0RF hydrocortisone 30 GM cream with perineal applicator 1 chauncey RC BID prn Qty: 30 3RF omeprazole 20 mg capsule,delayed release(DR/EC) 20 mg PO DAILY Qty: 90 3RF gabapentin 300 mg capsule See Rx Instructions .ROUTE .COMPLEX Qty: 60 0RF Dose Instruction: TAKE 1 CAPSULE BY MOUTH TWICE DAILY Rx Instructions: TAKE 1 CAPSULE BY MOUTH am and 2 capsules pm acetaminophen 500 mg tablet 1,000 mg PO Q8H PRN (Reason: pain) Qty: 90 3RF Discontinued oxycodone 10 mg tablet 10 mg PO QID PRN0RF ibuprofen [Advil] 200 mg tablet 400 mg PO BID PRN0RF Discharge Instructions Additional Instructions: Knee Manipulation Discharge Instructions Activity: You should begin moving as soon as possible. You may work on flexion but also equally maintain extension. You may bear weight as tolerated, using crutches only for support/comfort. You should apply ice to help with swelling and elevate when possible (especially in the first few days). Dressings: The knee dressing may come down later this evening. Medications: - Rarely does this require any stronger pain medications but some Oxycodone were called in just in case. - Recommend to take up to 1000mg of Acetaminophen (Tylenol) and 600mg of Ibuprofen (Advil) every 8 hours as needed. These larger strength tablets were called in but you also may use [id number]-[id number]-[id number]. Follow-up: 7-10 days Referrals: Tacho Levi MD [ [facility] STAFF PHYSICIAN] - Activity:: Elevate Remove Dressings/Wound Care:: 24 hours Shower/Bathe:: 24 hours Diet:: As Tolerated Discharge Orders Discharge Orders: Discharge Order (Routine); Ordered 03/08/22 Ordered By: Tacho Levi
[2022-03-08 11:12] VITALS: BP 142/86; PULSE 58; RESP 16; TEMP 36.9; O2SAT 98
[2022-03-08 11:21] VITALS: BMI 25.4
[2022-03-08] MEDS: Lactated Ringers 1,000 ML 80 ML IV (11:30)
--- NOTE | 2022-03-08 11:57 | W.ANESNERVE ---
Nerve Block Single Injection Procedure Date and Time Date Performed: 03/08/22 Procedure Start: 11:48 Location Where Procedure Performed Procedure Location: Day Surgery Unit Reason Performed: Postoperative Analgesia Requesting Provider: Tacho Levi Timeout Performed Timeout Performed: Yes Monitoring Used ECG, Blood Pressure, SpO2 and See EMR for corresponding vital signs Sterility Sterility: Hand Hygiene, Surgical Cap, Surgical Mask and Sterile Gloves Sedation Given During Procedure Sedation Given (Indicate Dose Given): Versed IV Dose:: 2mg Patient Mental Status Patient Mental Status: Awake Nerve Block 1st Nerve Block: Laterality: Right Block Type: Adductor Canal Needle / Catheter Used: 100mm SonoPlex II Local Anesthetic Bolus (Indicate Dose Given): Lidocaine used for local infiltration of skin, Injected in 3-5ml increments after negative blood aspiration and Bupivacaine 0.25% Dose:: 20mL Additives (Indicate Dose Given): None Ultrasound: Sterile probe cover and gel used Ultrasound Image Saved?: Yes Nerve Stimulator: Not Used Paresthesia: None Procedure Tolerated: No Complications Procedure Outcome: Successful Performed By: Rylee Foote
[2022-03-08] MEDS: Bupivacaine 0.25% Pres-Free 30 ML VIAL (12:10)
[2022-03-08 12:29] VITALS: BP 132/89; PULSE 56; RESP 17; TEMP 36.2; O2SAT 94
[2022-03-08 12:55] VITALS: BP 143/86; PULSE 55; RESP 16; TEMP 36; O2SAT 96
--- NOTE | 2022-03-08 13:10 | W.ANESPOSTOP ---
Postoperative Evaluation Date, Time and Location Date Performed: 03/08/22 Time Performed: 13:10 Patient Location: Day Surgery Unit Vital Signs Most Recent Imported Vital Signs: Most Recent Vital Signs Temp Pulse Resp BP Pulse Ox 36 C L 55 L 16 143/86 H 96 03/08/22 12:55 03/08/22 12:55 03/08/22 12:55 03/08/22 12:55 03/08/22 12:55 Pain Score Most Recent Pain Score: Most Recent Pain Score Pain Level 0 03/08/22 12:55 Assessment Mental Status: Awake (Alert & Oriented to Patient Baseline) Airway and Respiratory Function: Patent airway with normal (patient baseline) respiratory exam Cardiovascular Function: Hemodynamically Stable Hydration Status: Adequately Hydrated Nausea & Vomiting: No Nausea or Vomiting Pain: Pt. Denies Any Pain Peripheral Nerve Block: Regional nerve block not resolved at time of post operative discharge
--- NOTE | 2022-03-08 13:15 | ROE_ITS ---
Date of service: 03/08/22 Time of Service: 12:30 Operative Note Operative Note DATE OF PROCEDURE: 03/08/22 PRE-OP DIAGNOSIS: Right Knee Arthrofibrosis s/p Replacement POST-OP DIAGNOSIS: same PROCEDURE: Right Knee Manipulation Under Anesthesia SURGEON: Tacho Levi ANESTHESIA TYPE: General:No Airway Refer to Anesthesia Record ESTIMATED BLOOD LOSS: 0 PATHOLOGY: none sent TOURNIQUET TIME: 0 COMPLICATIONS: None Patient was transported to: PACU Patient's condition: stable Indications: Pavel is a 66 year old male who is s/p knee replacement. Unfortunately, he had issues with hemarthrosis and swellng after surgery. Due to this, despite diligent work with physical therapy, he has had continued stiffness. To assist with mobility, I offered a manipulation under anesthesia. I discussed the risks of the procedure to include bleeding, pain, recurrent stiffness, fracture. Despite these risks, [she] elects to proceed. Findings: Preoperative flexion = 95 Postoperative flexion = 125 Preoperative extension = 15 Postoperative extension = 5 Procedure Description: The patient is agreed in the preoperative holding area. Identity was confirmed and the correct side was identified and marked. The consent was reviewed the patient and signed. History and physical was updated. Pavel was taken back to the operating room. The right side was identified as the correct side. A timeout was performed for safe surgery. A general anesthetic was administered. The knee was then prepped with ChloraPrep and an intra-articular injection of 10 cc of 0.5% bupivacaine was administered after aspirating 60cc of thin, hemo-synovial fluid was removed. Once a muscle relaxant was fully on board manipulation was performed. Pre- manipulation range of motion was noted. A gentle manipulation was performed first into flexion using a very small lever arm and adding gentle and progressive pressure to the tibia. There is audible and palpable crepitus with improvement in range of motion. This was cycled and repeated multiple times. The leg was then brought into extension and gentle anterior posterior pressure was applied with a supported hand behind the proximal tibia and knee. This was brought back into flexion was once again manipulated with gentle and progressive pressure. Final range of motion numbers were recorded. A Band-Aid was applied to the injection site. He was awaken from anesthesia and taken to the PACU in stable condition.
== END 2022-03-08 13:35 | disposition home or self-care (01) ==
PROVIDERS: PCP Family Medicine; Visit Provider Student in an Organized Health Care Education/Training Program
PROC: (CPT 27570; principal; 2022-03-08 12:00)
DX: T84.82XA Fibrosis due to internal orthopedic prosthetic devices, implants and grafts, initial encounter (principal); G62.9 Polyneuropathy, unspecified; K75.81 Nonalcoholic steatohepatitis (NASH); K21.9 Gastro-esophageal reflux disease without esophagitis; E78.5 Hyperlipidemia, unspecified
CPT/HCPCS: 27570; 76942; 97110; 97140; J1100; J1885; J2001; J2250; J2704

== ENCOUNTER → 2022-07-18 13:23 | Outpatient (BNVA) | payer MEDICARE, MEDICAID, SELFPAY | PROVIDERS: PCP Family Medicine; Referring Provider Family Medicine; Visit Provider Surgery | DX: Z12.11 Encounter for screening for malignant neoplasm of colon (principal); R73.03 Prediabetes; R00.2 Palpitations; K21.9 Gastro-esophageal reflux disease without esophagitis; K75.81 Nonalcoholic steatohepatitis (NASH) | CPT/HCPCS: 99242 ==

== ENCOUNTER 2022-08-02 06:12 | Day surgery (SDC) | payer MEDICARE, MEDICAID, SELFPAY ==
--- NOTE | 2022-08-01 19:11 | PDOC.DSDIS_ITS ---
Discharge Plan Disposition Patient Disposition: HOME Condition: Good Discharge Details Reason For Visit: colon scope Attending Provider: Opal Durán Primary Care Provider: Christiano Cardenas Home Meds and New Rx's Prescriptions: Continued naproxen 250 mg tablet 250 mg PO BID PRN epinephrine 0.3 mg/0.3 mL auto-injector 0.3 mg IM ONCE PRN (Reason: anaphylaxis) Qty: 1 0RF Rx Instructions: DISPENSE ONE PACKAGE pregabalin [Lyrica] 25 mg capsule 25 mg PO BID Qty: 60 5RF lorazepam 1 mg tablet 0.5 mg PO QHS PRN (Reason: anxiety) Qty: 10 0RF amlodipine 5 mg tablet 5 mg PO DAILY magnesium oxide 400 mg magnesium tablet 400 mg PO DAILY aspirin [Adult Low Dose Aspirin] 81 mg tablet,delayed release (DR/EC) 81 mg PO DAILY tamsulosin 0.4 mg capsule 0.8 mg PO DAILY Qty: 180 3RF Rx Instructions: dose increase 10/23/21 ginkgo biloba leaf extract 60 MG tablet 60 mg PO DAILY echinacea purpurea root 80 MG capsule 80 mg PO BID PRN hydrocortisone 30 GM cream with perineal applicator 1 chaucney RC BID prn Qty: 30 omeprazole 20 mg capsule,delayed release(DR/EC) 20 mg PO DAILY Qty: 90 3RF amoxicillin 500 mg tablet 2,000 mg PO ONCE Qty: 4 0RF Rx Instructions: TAKE 4 TABS WITHIN ONE HOUR OF DENTAL PROCEDURE sertraline 50 mg tablet 50 mg PO DAILY Qty: 90 3RF acetaminophen 500 mg tablet 1,000 mg PO Q8H PRN (Reason: pain) Qty: 90 3RF Discontinued bisacodyl [Dulcolax (bisacodyl)] 5 mg tablet,delayed release (DR/EC) 5 mg PO ONCE Qty: 4 0RF Rx Instructions: Take according to provider's instructions for colonoscopy prep. polyethylene glycol 3350 17 gram/dose powder 17 g PO ONCE Qty: 238 0RF Rx Instructions: To be taken as directed by prescriber's office for colonoscopy prep. Discharge Instructions Additional Instructions: DSU Colonoscopy Post- Op Instructions Instructions for Everyone who is given Anesthesia: For your safety, please do the following for the next twenty-four (24) hours: *Do Not operate a motor vehicle (car, truck, motorcycle, etc.) *Do Not drink alcoholic beverages or use any recreational drugs for the first 24 hours or while taking pain medications. The medications in your body may have a reaction that can be dangerous. *Do Not make any important decisions or sign any important papers. Findings: Minor diverticular disease. Make sure you are moving your bowels on a regular basis and not straining to go to the bathroom Follow up: Repeat in 10 years time 1. No lifting over 20 pounds or strenuous activity for the first 24 hours after your procedure. After 24 hours there are no restrictions on your activity but you may feel fatigued for a few days. 2. After you arrive home you may have a light meal and return to your normal diet as you can tolerate it without feeling sick to your stomach. 3. You may have a bloated, gaseous feeling in your belly (abdomen) after a colonoscopy. Passing gas and belching will help. Walking or lying down on your left side with your knees flexed may relieve the discomfort. Call the office at [phone] (Office) or [phone] (Hospital) right away if you notice any of the following: a.Vomiting of blood or ?coffee ground stools?. b.Rectal bleeding 1Tbsp, blood clots or continuous bleeding. c.Severe belly (abdominal) pain. d.A hard distended belly (abdomen) and an inability to pass gas. 4. Please don?t expect to have a normal BM (bowel movement) for 2-3 days after your procedure. 5. If there are questions regarding the findings of your procedure, please contact your doctor 6. If you are unable to contact your doctor with a problem, contact the hospital at [phone]. 7. Continue all your regular medications unless directed otherwise. I understand the above instructions and have no questions. Signature of Patient or Adult Escort Name of Responsible Adult Escort Signature of Nurse Date/Time Activity:: see above Diet:: see above Discharge Orders Discharge Orders: Discharge Order (Routine); Ordered 08/01/22 Ordered By: Opal Durán
--- NOTE | 2022-08-01 19:14 | W.COLOREPORT ---
Colonoscopy Report Date of procedure: 08/02/22 Pre-op diagnosis general: crc screening Post-op diagnosis procedure note: other (minor diverticular dx) Surgeon: Opal Durán Anesthesia Type: General:No Airway Estimated blood loss (mL): 0 Pathology: none sent Complications: None Disposition: same day Prep: Miralax/Dulcolax Retraction Time: 8 Procedure Description: After informed consent was obtained the patient was taken to the procedure room and placed in a left decubitous position. Monitors were applied and a time out was done. The patients name, date of , procedure, allergies to medications and metal in their body was reviewed. The patient was then sedated. Once sedated and comfortable a rectal exam was done. External exam was normal. Internal exam revealed a normal sphincter tone and no palpable masses. The prostate nl. The scope was then introduced and retrofelexed. Grade I x1 internal hemorrhoids were identified. The scope was then advanced to the cecum w/out difficulty. The TI and appendiceal orifice were identified. The prep was BBPS 9 in all segments for a total of 9.. The scope was then slowly retracted over 7 minutes back into the rectum. There are no AVMs or polyps identified today. He has minor diverticular disease throughout the sigmoid colon. There is no signs of active bleeding or infection. Mucosa is pink and healthy with a normal vascular pattern. The scope was removed and the patient was woken up and taken back to Same day surgery in stable condition. The patient tolerated the procedure well and there were no immediate complications. Follow up: The patient should follow up in 10 years unless they develop changes in bowel habits or other new gastrointestinal complaints.
[2022-08-02 06:29] VITALS: BP 129/90; PULSE 57; RESP 16; TEMP 36.2; O2SAT 98
[2022-08-02] MEDS: Lactated Ringers 1,000 ML 80 ML IV (07:00)
--- NOTE | 2022-08-02 07:15 | W.ANESPRE ---
General Info Date of Service Date Performed: 08/02/22 Height: 6 ft 2 in Weight: 92.6 kg Body Mass Index (BMI): 26.2 Surgical Procedure: Operation Date: 08/02/22 07:35 Proposed Procedure Side Surgeon p Colonoscopy Opal Durán, Actual Procedure Side Surgeon p Colonoscopy Not Applicable Opal Durán, Pre-Op Diagnosis Post-Op Diagnosis SCREENING Meds Allergies and Home Medications Allergies Allergy/AdvReac Type Severity Reaction Status Date / Time bee venom protein (honey bee) Allergy Severe Anaphylaxis Verified 08/02/22 06:43 chocolate flavor Allergy Severe RASH, H/A Verified 08/02/22 06:43 vardenafil HCl [From Levitra] Allergy Severe SWELLING, Verified 08/02/22 06:43 FLUSHING hydrocodone bitartrate AdvReac Severe H/A Verified 08/02/22 06:43 [From Vicodin] sertraline AdvReac Severe TREMOR Verified 08/02/22 06:43 ezetimibe [From Zetia] AdvReac Intermediate dizziness Verified 08/02/22 06:43 lovastatin AdvReac Mild MYALGIAS Verified 08/02/22 06:43 Fvlxagp-SGO-QsL Reductase AdvReac Mild severe Verified 08/02/22 06:43 Inhibitor muscle [Vbgnolk-Vds-Glh Reductase cramps at Inhibitor] bedtime lactose AdvReac Unknown INTOLERANT Verified 08/02/22 06:43 Home Medication Medication Instructions Recorded ginkgo biloba leaf extract 60 mg 60 mg PO DAILY 03/15/14 tablet echinacea purpurea root 80 mg 80 mg PO BID PRN 10/24/14 capsule hydrocortisone 2.5 % topical cream 1 chauncey RC BID prn #30 grams 03/26/17 with perineal applicator epinephrine 0.3 mg/0.3 mL 0.3 mg (0.3 mL) IM ONCE PRN 06/30/20 injection, auto-injector anaphylaxis #1 SYRG omeprazole 20 mg capsule,delayed 20 mg PO DAILY #90 caps 02/07/22 release aspirin 81 mg tablet,delayed 81 mg PO DAILY 02/27/22 release (Adult Low Dose Aspirin) magnesium oxide 400 mg PO DAILY 02/27/22 acetaminophen 500 mg tablet 1,000 mg PO Q8H PRN pain #90 tabs 03/08/22 tamsulosin 0.4 mg capsule 0.8 mg PO DAILY #180 caps 04/04/22 amlodipine 5 mg tablet 5 mg PO DAILY 04/05/22 amoxicillin 500 mg tablet 2,000 mg PO ONCE #4 tabs 04/18/22 naproxen 250 mg tablet 250 mg PO BID PRN 04/25/22 sertraline 50 mg tablet 50 mg PO DAILY #90 tabs 05/28/22 lorazepam 1 mg tablet 0.5 mg PO QHS PRN anxiety #10 tabs 07/09/22 pregabalin 25 mg capsule (Lyrica) 25 mg PO BID essential tremor #60 07/09/22 caps Current Visit Medications: Current Medications Generic Name Dose Route Start Last Admin Trade Name Freq PRN Reason Stop Dose Admin Hyoscyamine Sulfate 0.125 mg 08/01/22 19:14 Hyoscyamine 0.125 Mg Sl/Oral/Chew SL DIRECTED PRN Ringer's Solution 1,000 mls @ 80 mls/hr 08/02/22 06:00 08/02/22 07:00 IV 08/31/22 23:59 80 mls/hr INFUSION LEIGHTON Administration IV Miscellaneous Supplies 1 each 08/02/22 06:00 Iv Access IV 08/31/22 23:59 DIRECTED LEIGHTON Ondansetron HCl 4 mg 08/01/22 19:14 Ondansetron 4 Mg/2 Ml Vial IVP Q4H PRN PRN Nausea / Vomiting Sodium Chloride 0 ml 08/02/22 06:00 Normal Saline Flush 10 Ml Syr IV 08/31/22 23:59 PRN PRN Sodium Chloride 0 ml 08/02/22 06:00 Normal Saline 10 Ml Vial IJ 08/31/22 23:59 DIRECTED PRN Sterile Water 0 ml 08/02/22 06:00 Water,Injection,Sterile 10 Ml Vial IJ 08/31/22 23:59 DIRECTED PRN PFSH Active Problems Active Problems: Problem Status Onset Code Diverticula of colon K57.30 BPH w urinary obs/LUTS N40.1, N13.8 Prediabetes R73.03 Tremor R25.1 Erectile dysfunction N52.9 Screening for colon cancer Z12.11 Dyspnea R06.00 Palpitations R00.2 Irritable colon K58.9 Medical History Medical History Actinic Keratosis Adjustment disorder with depressed mood BPH (benign prostatic hyperplasia) Chilblains 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 01/15/22 Depressive disorder (10/16/99) anxiety Diastasis recti Erectile dysfunction (10/21/14) Frostbite of foot Gastroesophageal reflux disease (07/13/11) 05/27 EGD ([facility]) Genital herpes simplex Hemarthrosis of knee, right Herpes zoster without complication (03/26/17) Hyperlipidemia (10/16/99) Insomnia Ischemia of foot Lower extremity neuropathy Lower urinary tract symptoms (LUTS) ARBOLEDA (nonalcoholic steatohepatitis) (03/16/18) Peripheral neuropathy Peyronie's disease (10/05/13) Dr Velazco Skin lesions, generalized Surgical History Surgical History Appendectomy Arthrofibrosis of total knee arthroplasty Status post manipulation under anesthesia DOS: 03/08/2022 History of total right knee replacement (01/15/22) DOS 01/15/22 Repair of inguinal hernia (~1985) left Tobacco Smoking/Tobacco Use Status: Never Passive smoking exposure: Yes Second hand exposure: Yes Alcohol Alcohol Intake: current Alcohol intake frequency: a few times a week Alcohol type: beer Substance Use Substance use: Never Substance use type: does not use Vital Signs and Lab Results Vital Signs Most Recent Vital Signs in EMR: Most Recent Vital Signs Temp Pulse Resp BP Pulse Ox 36.2 C L 57 L 16 129/90 98 08/02/22 06:29 08/02/22 06:29 08/02/22 06:29 08/02/22 06:29 08/02/22 06:29 Lab Results Blood Type / Crossmatch: No Data to Display Complete Blood Count: No Data to Display Complete Metabolic Panel: No Data to Display Liver Function Panel: No Data to Display Coagulation Panel: No Data to Display Cardiac Panel: No Data to Display Arterial Blood Gas: No Data to Display Venous Blood Gas: No Data to Display Pancreas Panel: No Data to Display Thyroid Panel: No Data to Display Infectious Disease: No Data to Display Blood Cultures: No Data to Display Toxicology Panel: No Data to Display Anesthesia Assessment and Plan Anesthesia History Personal History: No History of Anesthesia Complications Family History: No Family History of Anesthesia Complications Exercise Tolerance Exercise Tolerance: Metabolic Equivalents>4 Pertinent Negatives Pertinent Negatives: No Symptoms of GERD (Well controlled with medication ), No Major Cardiovascular Symptoms or Complaints, No Major Pulmonary Symptoms or Complaints and No History of CVA/TIA Cardiac & Pulmonary Exam Cardiac Exam: Normal S1/S2 Heart Sounds Pulmonary Exam: Clear Bilateral Breath Sounds Implantable Cardiac Device Does patient have a Pacemaker or an ICD?: No Airway Exam Known Difficult Airway: No Mallampati Class: 2 Mouth Opening: Normal (> 3cm) Thyromental Distance: Greater than 3 cm Neck Range of Motion: Full ROM Neck Circumference: Normal Teeth Condition: Normal Dentition ASA Classification ASA Score: ASA 2 Emergency Case?: No NPO Status NPO Status: NPO Clears >2 hours, Solids >8 hours Anesthesia Plan Resuscitation Status: Full Code Anesthesia Technique: General Anesthesia Airway Planned: Natural Airway Monitors Used: Standard Monitors
[2022-08-02 07:17] VITALS: BMI 26.2
--- NOTE | 2022-08-02 08:19 | W.ANESPOSTOP ---
Postoperative Evaluation Date, Time and Location Date Performed: 08/02/22 Time Performed: 08:19 Patient Location: Day Surgery Unit Vital Signs Most Recent Imported Vital Signs: Most Recent Vital Signs Temp Pulse Resp BP Pulse Ox 36.2 C L 57 L 16 129/90 98 08/02/22 06:29 08/02/22 06:29 08/02/22 06:29 08/02/22 06:08/02/22 06:29 Most Recent Manually Entered Vital Signs: Adult Blood Pressure: 131/85 Heart Rate: 71 Respirations: 12 Oxygen Saturation (%): 96 Temperature (C): 36.3 C Pain Score (0-10 Scale): 0 Assessment Mental Status: Awake (Alert & Oriented to Patient Baseline) Airway and Respiratory Function: Patent airway with normal (patient baseline) respiratory exam Cardiovascular Function: Hemodynamically Stable Hydration Status: Adequately Hydrated Nausea & Vomiting: No Nausea or Vomiting Pain: Pt. Denies Any Pain Peripheral Nerve Block: Patient did not receive a nerve block
[2022-08-02 08:20] VITALS: BP 131/85; PULSE 70; PULSE 71; RESP 12; RESP 14; TEMP 36.3; TEMPC 36.3; O2SAT 94; O2SAT 96
[2022-08-02] MEDS: Hyoscyamine 0.125 MG SL/ORAL/CHEW SL (08:32)
[2022-08-02 08:58] VITALS: BP 141/101; PULSE 61; RESP 14; TEMP 36.2; O2SAT 99
--- NOTE | 2022-08-02 12:58 | PDOC.ANES ---
Date of service: 08/02/22 Time of Service: 12:53 Anesthesia Note Report Anesthesia Note: Patient's friend (Karie Moyer) called with concern about the patient's using the rest room to then reported that he needed to lay down and was shaking uncontrollably. Patient decided to take 1mg Ativan and returned to bed. Karie reports that the shaking has not stopped and reported some concern of the symptoms. I informed Karie that we could not assess the patient over the phone and if there were any concerns to take the G.N. to the emergency department for evaluation. Karie verbalized understanding.
== END 2022-08-02 09:50 | disposition home or self-care (01) ==
PROVIDERS: PCP Family Medicine; Visit Provider Surgery
PROC: 0DJD8ZZ Inspection of Lower Intestinal Tract, Via Natural or Artificial Opening Endoscopic (ICD-10-PCS; CPT 45378; principal; 2022-08-02 07:30)
DX: Z12.11 Encounter for screening for malignant neoplasm of colon (principal); R73.03 Prediabetes; K57.30 Diverticulosis of large intestine without perforation or abscess without bleeding
CPT/HCPCS: G0121; 80053; 83690; 87635; 96361; 96365; 96374; 96375; 96376; 99284; 74022; 83605; 83735; 85025; J0131; J3490

== ENCOUNTER 2022-08-02 14:44 | Emergency (ER) | payer MEDICARE, MEDICAID, SELFPAY ==
[2022-08-02 14:53] VITALS: BP 132/76; PULSE 107; TEMP 36.7; O2SAT 94
--- NOTE | 2022-08-02 16:05 | W.ED.GENAD ---
Discharge Plan Disposition Patient Disposition: HOME Condition: Stable Discharge Details Clinical Impression: Abdominal gas pain, Chills Primary Care Provider: Christiano Cardenas ED Provider: Gabbie Kohler Home Meds and New Rx's Prescriptions: Continued naproxen 250 mg tablet 250 mg PO BID PRN epinephrine 0.3 mg/0.3 mL auto-injector 0.3 mg IM ONCE PRN (Reason: anaphylaxis) Qty: 1 0RF Rx Instructions: DISPENSE ONE PACKAGE pregabalin [Lyrica] 25 mg capsule 25 mg PO BID Qty: 60 5RF lorazepam 1 mg tablet 0.5 mg PO QHS PRN (Reason: anxiety) Qty: 10 0RF amlodipine 5 mg tablet 5 mg PO DAILY magnesium oxide 400 mg magnesium tablet 400 mg PO DAILY aspirin [Adult Low Dose Aspirin] 81 mg tablet,delayed release (DR/EC) 81 mg PO DAILY tamsulosin 0.4 mg capsule 0.8 mg PO DAILY Qty: 180 3RF Rx Instructions: dose increase 10/23/21 ginkgo biloba leaf extract 60 MG tablet 60 mg PO DAILY echinacea purpurea root 80 MG capsule 80 mg PO BID PRN hydrocortisone 30 GM cream with perineal applicator 1 chauncey RC BID prn Qty: 30 omeprazole 20 mg capsule,delayed release(DR/EC) 20 mg PO DAILY Qty: 90 3RF amoxicillin 500 mg tablet 2,000 mg PO ONCE Qty: 4 0RF Rx Instructions: TAKE 4 TABS WITHIN ONE HOUR OF DENTAL PROCEDURE sertraline 50 mg tablet 50 mg PO DAILY Qty: 90 3RF acetaminophen 500 mg tablet 1,000 mg PO Q8H PRN (Reason: pain) Qty: 90 3RF Discharge Instructions Instructions: Abdominal Pain (ED) Additional Instructions: At this time it appears you may still have some retained gas from the procedure. Please follow-up as directed. Please take Tylenol or Ibuprofen with food every 4-6 hours as needed for pain and swelling. Follow up with primary care provider in 3-5 days. Return to ED sooner if any worsening or concerns. Increase oral fluids. Referrals: Christiano Cardenas MD [Primary Care Provider] - 5 days Medical Decision Making 66-year-old male presents to the ER with chief complaint body aches, chills, sore throat and abdominal pain status post colonoscopy this morning. Patient reports symptoms began around 1230. He reports feeling warm but no documented fever. He did take an Ativan prior to arrival. Work-up ordered including CBC, CMP, lipase, urinalysis and COVID. 173: Patient reevaluation: Patient reports she feels much better after the liter of fluid and Tylenol. Work-up largely unremarkable. Patient and his family report that anesthesia come and see them unbeknownst to me and states that the surgeon is going to be coming to see him. 1759: Dr. Vo here at bedside for patient svitlana he reports the tenderness is consistent with recent colonoscopy he reports that he is probably closed ended from the procedure, I did discuss that I am going to do a three-way abdominal x-ray and if this is within normal limits will most likely be discharging patient home. He agrees with plan. Patient updated on plan of care. X-ray shows no acute findings and no evidence for free air or perforation. Patient will be discharged home with instructions to take Tylenol or ibuprofen. Instructed to follow-up with PCP and strict return instructions. This text was generated using [employer] dictation system, please disregard any oddities of phrase or misspellings. Medical Records Medical records reviewed: Yes I reviewed the patient's medical records. Lab Data Lab results reviewed: Yes I reviewed the patient's lab results. Labs: Laboratory Tests Range/Units 08/02/22 08/02/22 08/02/22 16:10 16:10 16:10 WBC (4.4-10.8) 10^3/uL RBC (4.36-5.78) 10^6/uL Hgb (13.5-17.5) g/dL Hct (40.0-50.0) % MCV (80-95) fL MCH (27.0-33.0) pg MCHC (32.0-36.0) % RDW (11.8-14.1) % Plt Count (130-400) 10^3/uL MPV (8.0-11.0) fL Immature Gran % Neutrophils % Lymphocytes % Monocytes % Eosinophils % Basophils % Nucleated RBC % (0.0-0.3) % Absolute Neutrophils (1.2-6.7) 10^3/uL Absolute Lymphocytes (1.2-3.4) 10^3/uL Absolute Monocytes (0.1-0.8) 10^3/uL Absolute Eosinophils (0.0-0.7) 10^3/uL Absolute Basophils (0.0-0.2) 10^3/uL VBG Lactate (0.6-1.4) mmol/L 1.0 Sodium (136-145) mmol/L 140 Potassium (3.5-5.1) mmol/L 3.7 Chloride (98-107) mmol/L 104 Carbon Dioxide (21.0-32.0) mmol/L 27.0 Anion Gap (3-11) mmol/L 9.0 BUN (7-18) mg/dL 18 Creatinine (0.70-1.30) mg/dL 1.3 Est GFR (CKD-EPI 2020) (mL/min/1.73m2) 60.59 Glucose (74-106) mg/dL 126 H Calcium (8.5-10.1) mg/dL 9.1 Magnesium (1.8-2.4) mg/dL 1.8 Total Bilirubin (0.2-1.0) mg/dL 0.8 AST (15-37) U/L 21 ALT (16-63) U/L 28 Alkaline Phosphatase (46-116) U/L 89 Total Protein (6.4-8.2) g/dL 7.3 Albumin (3.4-5.0) g/dL 4.0 Lipase (73-393) U/L 59 COVID-19 Source Nasal/Nares SARS-CoV-2 (PCR) (Negative) Negative Range/Units 08/02/22 16:10 WBC (4.4-10.8) 10^3/uL 11.43 H RBC (4.36-5.78) 10^6/uL 4.78 Hgb (13.5-17.5) g/dL 15.2 Hct (40.0-50.0) % 44.5 MCV (80-95) fL 93 MCH (27.0-33.0) pg 31.8 MCHC (32.0-36.0) % 34.2 RDW (11.8-14.1) % 13.2 Plt Count (130-400) 10^3/uL 166 MPV (8.0-11.0) fL 9.6 Immature Gran % 0.3 Neutrophils % 73.7 Lymphocytes % 19.3 Monocytes % 6.0 Eosinophils % 0.3 Basophils % 0.4 Nucleated RBC % (0.0-0.3) % 0.0 Absolute Neutrophils (1.2-6.7) 10^3/uL 8.42 H Absolute Lymphocytes (1.2-3.4) 10^3/uL 2.21 Absolute Monocytes (0.1-0.8) 10^3/uL 0.69 Absolute Eosinophils (0.0-0.7) 10^3/uL 0.03 Absolute Basophils (0.0-0.2) 10^3/uL 0.05 VBG Lactate (0.6-1.4) mmol/L Sodium (136-145) mmol/L Potassium (3.5-5.1) mmol/L Chloride (98-107) mmol/L Carbon Dioxide (21.0-32.0) mmol/L Anion Gap (3-11) mmol/L BUN (7-18) mg/dL Creatinine (0.70-1.30) mg/dL Est GFR (CKD-EPI 2020) (mL/min/1.73m2) Glucose (74-106) mg/dL Calcium (8.5-10.1) mg/dL Magnesium (1.8-2.4) mg/dL Total Bilirubin (0.2-1.0) mg/dL AST (15-37) U/L ALT (16-63) U/L Alkaline Phosphatase (46-116) U/L Total Protein (6.4-8.2) g/dL Albumin (3.4-5.0) g/dL Lipase (73-393) U/L COVID-19 Source SARS-CoV-2 (PCR) (Negative) HPI General Mode of arrival: ambulatory. Date/Time Provider Initiated Documentation: 08/02/22 15:26. Limitations to Documentation: no limitations. Information obtained by: patient, RN notes reviewed and old records reviewed. HPI Narrative: 66-year-old male presents to the ER with chief complaint body aches, chills, sore throat and abdominal pain status post colonoscopy this morning. Patient reports symptoms began around 1230. He reports feeling warm but no documented fever. He did take an Ativan prior to arrival. He does have a past medical history of BPH with urinary obstruction, diverticula, erectile dysfunction, dyspnea, palpitations durable:. Noted to have mild diverticula on the colonoscopy. He did not take any Tylenol or ibuprofen prior to arrival. He denies any bloody stool he does report nausea. Related Data Home Medications Medication Instructions Recorded Confirmed ginkgo biloba leaf extract 60 mg 60 mg PO DAILY 03/15/14 08/02/22 tablet echinacea purpurea root 80 mg 80 mg PO BID PRN 10/24/14 08/02/22 capsule hydrocortisone 2.5 % topical cream 1 chauncey RC BID prn #30 grams 03/26/17 08/02/22 with perineal applicator epinephrine 0.3 mg/0.3 mL 0.3 mg (0.3 mL) IM ONCE PRN 06/30/20 08/02/22 injection, auto-injector anaphylaxis #1 SYRG omeprazole 20 mg capsule,delayed 20 mg PO DAILY #90 caps 02/07/22 08/02/22 release aspirin 81 mg tablet,delayed 81 mg PO DAILY 02/27/22 08/02/22 release (Adult Low Dose Aspirin) magnesium oxide 400 mg PO DAILY 02/27/22 08/02/22 acetaminophen 500 mg tablet 1,000 mg PO Q8H PRN pain #90 tabs 03/08/22 08/02/22 tamsulosin 0.4 mg capsule 0.8 mg PO DAILY #180 caps 04/04/22 08/02/22 amlodipine 5 mg tablet 5 mg PO DAILY 04/05/22 08/02/22 amoxicillin 500 mg tablet 2,000 mg PO ONCE #4 tabs 04/18/22 08/02/22 naproxen 250 mg tablet 250 mg PO BID PRN 04/25/22 08/02/22 sertraline 50 mg tablet 50 mg PO DAILY #90 tabs 05/28/22 08/02/22 lorazepam 1 mg tablet 0.5 mg PO QHS PRN anxiety #10 tabs 07/09/22 08/02/22 pregabalin 25 mg capsule (Lyrica) 25 mg PO BID essential tremor #60 07/09/22 08/02/22 caps Previous Rx's Medication Instructions Recorded epinephrine 0.3 mg/0.3 mL 0.3 mg (0.3 mL) IM ONCE PRN 06/30/20 injection, auto-injector anaphylaxis #1 SYRG omeprazole 20 mg capsule,delayed 20 mg PO DAILY #90 caps 02/07/22 release acetaminophen 500 mg tablet 1,000 mg PO Q8H PRN pain #90 tabs 03/08/22 tamsulosin 0.4 mg capsule 0.8 mg PO DAILY #180 caps 04/04/22 amoxicillin 500 mg tablet 2,000 mg PO ONCE #4 tabs 04/18/22 sertraline 50 mg tablet 50 mg PO DAILY #90 tabs 05/28/22 lorazepam 1 mg tablet 0.5 mg PO QHS PRN anxiety #10 tabs 07/09/22 pregabalin 25 mg capsule (Lyrica) 25 mg PO BID essential tremor #60 07/09/22 caps Allergies Allergy/AdvReac Type Severity Reaction Status Date / Time bee venom protein (honey bee) Allergy Severe Anaphylaxis Verified 08/02/22 06:43 chocolate flavor Allergy Severe RASH, H/A Verified 08/02/22 06:43 vardenafil HCl [From Levitra] Allergy Severe SWELLING, Verified 08/02/22 06:43 FLUSHING hydrocodone bitartrate AdvReac Severe H/A Verified 08/02/22 06:43 [From Vicodin] sertraline AdvReac Severe TREMOR Verified 08/02/22 06:43 ezetimibe [From Zetia] AdvReac Intermediate dizziness Verified 08/02/22 06:43 lovastatin AdvReac Mild MYALGIAS Verified 08/02/22 06:43 [id number] Reductase AdvReac Mild severe Verified 08/02/22 06:43 Inhibitor muscle [[id number]-Nbl Reductase cramps at Inhibitor] bedtime lactose AdvReac Unknown INTOLERANT Verified 08/02/22 06:43 General Stated Complaint: GenMedical JOSIE: 3 Review of Systems All systems reviewed & are unremarkable except as noted in HPI and below Constitutional Constitutional: Reports body ache(s) and Reports chills ENT Ears, Nose, Mouth, and Throat: Reports sore throat PFSH All Active Problems (Updated 08/02/22 @ 18:39 by Gabbie Kohler NP) Abdominal gas pain (Acute) Chills (Acute) Diverticula of colon (Acute) BPH w urinary obs/LUTS (Acute) Prediabetes (Acute) Tremor (Acute) Erectile dysfunction (Acute) Screening for colon cancer (Acute) Dyspnea (Acute) Palpitations (Acute) Irritable colon (Chronic) Medical History Actinic Keratosis Adjustment disorder with depressed mood BPH (benign prostatic hyperplasia) Chilblains 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 01/15/22 Depressive disorder (10/16/99) anxiety Diastasis recti Erectile dysfunction (10/21/14) Frostbite of foot Gastroesophageal reflux disease (07/13/11) 05/27 EGD ([facility]) Genital herpes simplex Hemarthrosis of knee, right Herpes zoster without complication (03/26/17) Hyperlipidemia (10/16/99) Insomnia Ischemia of foot Lower extremity neuropathy Lower urinary tract symptoms (LUTS) ARBOLEDA (nonalcoholic steatohepatitis) (03/16/18) Peripheral neuropathy Peyronie's disease (10/05/13) Dr Velazco Skin lesions, generalized Surgical History Appendectomy Arthrofibrosis of total knee arthroplasty Status post manipulation under anesthesia DOS: 03/08/2022 History of total right knee replacement (01/15/22) DOS 01/15/22 Repair of inguinal hernia (~1985) left Family History Mother Neoplasm BREAST Father Diabetes Heart disease Hyperlipidemia Sister Essential hypertension Brother No problems noted. Son No problems noted. Son No problems noted. Daughter No problems noted. Social History Smoking/Tobacco Use Status: Never Second Hand Exposure: Yes Smoking risk assessment performed?: Yes Alcohol Intake: current Alcohol Intake frequency: a few times a week Alcohol type: beer Drug use: Never Substance use type: does not use Household members: spouse Housing: house Communication Needs: None current occupation: [employer] Pets and animals: Yes Pets and animals: cat(s) and dog(s) Sexually active: Yes Do you think of yourself as: straight/heterosexual Current gender identity: female What is your relationship status?: How often do you talk on the phone with friends or family?: once per week How often do you get together with friends or relatives?: once per week How often do you attend sabianist or restoration services?: 4 or more times per year Do you belong to any clubs or organized social groups?: no Panel score (0-1 are the most socially isolated patients): 2 Seatbelt use: always Drive intox or ride w/intox 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 Appears stated age. Normal body habitus. Head: Normocephalic, no trauma. Eyes: Pupils PERRL, Red reflex noted, EOM's intact. Eyelids symmetrical without lesions, discharge, or swelling. ENT: Bilateral TM's WNL, External ear normal to inspection, no mastoid TTP, swelling, or erythema, Nasal turbinates WNL, no nasal discharge. Normal dentition, Posterior pharynx WNL, no exudate. Chest: RRR, Normal S1, S2, distal pulses intact. Resp: Lungs clear to auscultation bilaterally, no wheezes, rales, or rhonchi. Abdomen: Soft, non-distended, hypoactive bowel sounds all 4 quadrants, generalized tenderness to palpation all 4 quadrants. Musculoskeletal: Normal gait, 5/5 strength to all four extremities. Skin: No suspicious rashes or lesions. Capillary refill less than 2 sec. Neurologic: Cranial nerves II-XII intact. Alert and oriented x 3. Motor: No deficits noted. Sensory: Intact bilaterally all 4 extremities. Reflexes: DTR's intact bilaterally.. Hematologic/Lymphatic: No ecchymosis, no lymphadenopathy. Recommend nystatin Course Vital Signs Vital signs: Vital Signs Temperature 36.7 C 08/02/22 14:53 Pulse 107 H 08/02/22 14:53 Blood Pressure 132/76 08/02/22 14:53 Pulse Oximetry 94 08/02/22 14:53 Temperature 36.7 C 08/02/22 14:53 Temperature Source Temporal Artery Scan 08/02/22 14:53 Pulse 107 H 08/02/22 14:53 Respiratory Effort Non-Labored 08/02/22 14:58 Blood Pressure 132/76 08/02/22 14:53 Blood Pressure Position Sitting 08/02/22 14:53 Pulse Oximetry 94 08/02/22 14:53 Oxygen Delivery Method Room Air 08/02/22 14:53 Oxygen Flow Rate 0 08/02/22 14:53 Pain Level 5 08/02/22 14:53
[2022-08-02] MEDS: Normal Saline 1,000 ML 1000 ML IV (16:16)
[2022-08-02 16:18] LABS: Source Nasal/Nares
[2022-08-02 16:19] LABS: Abs Immature Grans 0.03 10^3/uL (0.0-0.06); Absolute Basophil Count 0.05 10^3/uL (0.0-0.2); Absolute Lymphocyte Count 2.21 10^3/uL (1.2-3.4); Absolute Monocyte Count 0.69 10^3/uL (0.1-0.8); Basophils % 0.4; Eosinophils % 0.3; HCT 44.5 % (40.0-50.0); HGB 15.2 g/dL (13.5-17.5); Immature Grans % 0.3; Lymphocytes % 19.3; MCH 31.8 pg (27.0-33.0); MCHC 34.2 % (32.0-36.0); MCV 93 fL (80-95); MPV 9.6 fL (8.0-11.0); Neutrophils % 73.7; Platelet Count 166 10^3/uL (130-400); RBC 4.78 10^6/uL (4.36-5.78); RDW 13.2 % (11.8-14.1); RDW-SD 45.4 fL; WBC 11.43 10^3/uL (4.4-10.8)
[2022-08-02 16:20] LABS: Absolute Eosinophil Count 0.03 10^3/uL (0.0-0.7); Absolute Neutrophil Count 8.42 10^3/uL (1.2-6.7)
[2022-08-02] MEDS: ACETAMINOPHEN 1,000 MG/100 ML BTL 400 MG IVPB (16:25)
[2022-08-02 16:53] LABS: ALT 28 U/L (16-63); AST 21 U/L (15-37); Alkaline Phosphatase 89 U/L (46-116); BUN 18 mg/dL (7-18); Bilirubin, Total 0.8 mg/dL (0.2-1.0); CREATININE 1.3 mg/dL (0.70-1.30); Calcium 9.1 mg/dL (8.5-10.1); Chloride 104 mmol/L (98-107); Estimated GFR 60.59 (mL/min/1.73m2); Glucose 126 mg/dL (74-106); Lipase 59 U/L (73-393); Magnesium 1.8 mg/dL (1.8-2.4); Potassium 3.7 mmol/L (3.5-5.1); Sodium 140 mmol/L (136-145); Total Protein 7.3 g/dL (6.4-8.2)
[2022-08-02 16:56] LABS: COVID-19 PCR Negative (Negative)
--- NOTE | 2022-08-02 17:30 | DI.RAD_ITS ---
Exam(s) XR ABD FLAT UPRIGHT PA CHEST EXAM: XR ABD FLAT UPRIGHT PA CHEST CLINICAL HISTORY: Hx colooscopy, abd pain. TECHNIQUE: 2D digital imaging was performed. COMPARISON: US ABDOMEN ULTRASOUND (P) from 02/19/2018 FINDINGS: Acute abdominal series was performed common present frontal chest radiograph as well as supine and up right views of the abdomen. Heart size upper normal and the mediastinum is not widened. There is platelike atelectasis in the ri ght lung base. Mild increased markings in the left lower lobe retrocardiac region are probably vascu lar markings. No pleural effusions. There is no free air subjacent to the hemidiaphragms on the upright view. There is air seen througho ut the:, most probably related to air introduced during the colonoscopy. There are no clips in the c olon noted to suggest intra procedural biopsies. There are few nondilated air-filled small bowel loo ps. The stomach is not distended. IMPRESSION: Post colonoscopy air-filled bowel loops as described above. No evidence of free intraperitoneal air. There appears to be some probable infiltrate in the left lower lobe retrocardiac region. Also platel flex atelectasis in the right lung base. DATA REPOSITORY: RADIATION DOSE DELIVERED:
--- NOTE | 2022-08-02 18:26 | DI.VRAD_ITS ---
PROCEDURE INFORMATION: Exam: XR Complete Acute Abdomen Series Including Chest Exam date and time: 08/02/2022 6:01 PM Age: 66 years old Clinical indication: Other: Colonoscopy, ab pain TECHNIQUE: Imaging protocol: Radiologic exam. Complete acute abdomen series, including 2 or more views of the abdomen and a single view chest. COMPARISON: CR CHEST 2 VIEWS PA,LAT 02/12/2018 2:55 PM FINDINGS: Lungs: Normal. No consolidation. Pleural spaces: Normal. No pleural effusions. No pneumothorax. Heart/Mediastinum: Normal. No cardiomegaly. Gastrointestinal tract: Normal. No bowel dilation. Intraperitoneal space: Normal. No free air. Bones/joints: Normal. No acute fracture. Soft tissues: Normal. IMPRESSION: No acute findings. No evidence of free air. Dictated and Authenticated by: Pavel Pelayo MD. Ordering:MEERA Cartwright MD
== END 2022-08-02 18:49 | disposition home or self-care (01) ==
PROVIDERS: Emergency Provider Registered Nurse Emergency; PCP Family Medicine
DX: R14.1 Gas pain (principal); R68.83 Chills (without fever); J02.9 Acute pharyngitis, unspecified; Z77.22 Contact with and (suspected) exposure to environmental tobacco smoke (acute) (chronic); Z20.822 Contact with and (suspected) exposure to COVID-19
CPT/HCPCS: 80053; 83690; 87635; 96361; 96365; 96374; 96375; 96376; 99284; 74022; 83605; 83735; 85025; J0131

== ENCOUNTER → 2022-10-01 10:56 | Outpatient (BNVA) | payer MEDICARE, MEDICAID, SELFPAY | PROVIDERS: PCP Family Medicine; Referring Provider Family Medicine; Visit Provider Nurse Practitioner Gerontology | DX: N40.1 Benign prostatic hyperplasia with lower urinary tract symptoms (principal); N13.8 Other obstructive and reflux uropathy | CPT/HCPCS: 36415; 99215 ==

== ENCOUNTER 2022-10-01 12:55 | Outpatient (REF) | payer MEDICARE, MEDICAID, SELFPAY ==
[2022-10-01 23:19] LABS: PSA, Screening 1.1 ng/mL (<=4.5)
== END 2022-10-01 12:56 | disposition home or self-care (01) ==
LOC: LBN 12:55
PROVIDERS: PCP Family Medicine; Visit Provider Nurse Practitioner Gerontology
DX: N13.8 Other obstructive and reflux uropathy (principal); N40.1 Benign prostatic hyperplasia with lower urinary tract symptoms; Z12.5 Encounter for screening for malignant neoplasm of prostate
CPT/HCPCS: 84153

== ENCOUNTER 2022-12-31 01:54 | Outpatient (CLI) | payer MEDICARE, MEDICAID, SELFPAY ==
[2022-12-31 12:53] LABS: Calculated LDL 175 mg/dL (<100); Cholesterol 240 mg/dL (<200); HDL Cholesterol 43 mg/dL (40-60); Triglyceride 113 mg/dL (<150)
== END 2022-12-31 01:55 | disposition home or self-care (01) ==
LOC: LOS 01:55
PROVIDERS: PCP Family Medicine; Visit Provider Family Medicine
DX: E78.5 Hyperlipidemia, unspecified (principal)
CPT/HCPCS: 36415; 80061

== ENCOUNTER → 2023-01-09 08:07 | Outpatient (BNVA) | payer MEDICARE, MEDICAID, SELFPAY | PROVIDERS: PCP Family Medicine; Referring Provider Family Medicine; Visit Provider Psychiatry & Neurology Neurology | DX: G62.9 Polyneuropathy, unspecified (principal); T33.821S Superficial frostbite of right foot, sequela; T33.822S Superficial frostbite of left foot, sequela; R73.03 Prediabetes; E53.8 Deficiency of other specified B group vitamins | CPT/HCPCS: 99214 ==

== ENCOUNTER 2023-01-16 08:55 | Outpatient (CLI) | payer MEDICARE, MEDICAID, SELFPAY ==
--- NOTE | 2023-01-16 08:30 | DI.RAD_ITS ---
Exam(s) XR KNEE RT 2V AP,LAT EXAM: XR KNEE RT 2V AP,LAT CLINICAL HISTORY: ANNUAL F/U R TKA. TECHNIQUE: 2D digital imaging was performed. Images were obtained. AP, lateral and oblique views w ere obtained. COMPARISON: CR XR KNEE RT 1V from 01/28/2022 CR,XR XR ABD FLAT UPRIGHT PA CHEST from 08/02/2022 FINDINGS: BONES: There are stable post operative changes present. No fracture or dislocation. JOINTS: The orthopedic hardware is in good position. No evidence of hardware loosening. SOFT TISSUE: There is soft tissue swelling around the knee. IMPRESSION: Stable postoperative changes. DATA REPOSITORY: RADIATION DOSE DELIVERED:
== END 2023-01-16 08:56 | disposition home or self-care (01) ==
LOC: DIORS 08:55
PROVIDERS: PCP Family Medicine; Referring Provider Family Medicine; Visit Provider Student in an Organized Health Care Education/Training Program
DX: Z96.651 Presence of right artificial knee joint (principal); Z47.1 Aftercare following joint replacement surgery
CPT/HCPCS: 99213; 73560

== ENCOUNTER → 2023-03-06 07:58 | Outpatient (BNVA) | payer MEDICARE, MEDICAID, SELFPAY | PROVIDERS: PCP Family Medicine; Referring Provider Family Medicine; Visit Provider Nurse Practitioner Adult Health | DX: G62.9 Polyneuropathy, unspecified (principal); R73.03 Prediabetes; E53.8 Deficiency of other specified B group vitamins | CPT/HCPCS: 99212; 99213 ==

== ENCOUNTER → 2023-04-07 08:24 | Outpatient (BNVA) | payer MEDICARE, MEDICAID, SELFPAY | PROVIDERS: PCP Family Medicine; Referring Provider Family Medicine; Visit Provider Student in an Organized Health Care Education/Training Program | DX: Z47.1 Aftercare following joint replacement surgery (principal); Z96.651 Presence of right artificial knee joint | CPT/HCPCS: 99213 ==

== ENCOUNTER 2023-04-29 18:45 | Outpatient (CLI) | payer MEDICARE, MEDICAID, SELFPAY ==
[2023-04-29 16:47] LABS: Vitamin B12 1043 pg/mL (193-986)
== END 2023-04-29 18:46 | disposition home or self-care (01) ==
LOC: LBO 18:47
PROVIDERS: PCP Family Medicine; Visit Provider Nurse Practitioner Adult Health
DX: G62.9 Polyneuropathy, unspecified (principal)
CPT/HCPCS: 36415; 82607

== ENCOUNTER → 2023-09-02 07:59 | Outpatient (BNVA) | payer MEDICARE, MEDICAID, SELFPAY | PROVIDERS: PCP Family Medicine; Referring Provider Family Medicine; Visit Provider Nurse Practitioner Adult Health | DX: G62.9 Polyneuropathy, unspecified (principal); R73.03 Prediabetes; E53.8 Deficiency of other specified B group vitamins; I10 Essential (primary) hypertension; T33.821S Superficial frostbite of right foot, sequela; T33.822S Superficial frostbite of left foot, sequela | CPT/HCPCS: 99213 ==

== ENCOUNTER 2023-10-01 16:42 | Emergency (ER) | payer MEDICARE, MEDICAID, SELFPAY ==
[2023-10-01 16:45] VITALS: BP 134/89; PULSE 66; RESP 16; TEMP 36.3; O2SAT 98
--- NOTE | 2023-10-01 16:59 | DI.RAD_ITS ---
Exam(s) XR KNEE LT 3V AP,LAT,PRAFUL EXAM: XR KNEE LT 3V AP,LAT,PRAFUL CLINICAL HISTORY: left knee pain. TECHNIQUE: 2D digital imaging was performed. Three views. COMPARISON: CR XR STANDING ALIGNMENT from 01/03/2022 CR XR KNEE RT 2V AP,LAT from 01/16/2023 FINDINGS: BONES: No acute fracture is present. No bony destructive lesion is seen. JOINTS: The knee is normally aligned. A moderate-sized joint effusion is seen. There are loose bodies seen anterior to the tibial spines. The joint spaces are maintained. Minimal periarticular spurrin g. SOFT TISSUE: Normal. IMPRESSION: Joint effusion loose bodies. DATA REPOSITORY: RADIATION DOSE DELIVERED:
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
[2023-10-01 17:40] VITALS: BP 138/90; PULSE 68; RESP 14; O2SAT 96
== END 2023-10-01 17:42 | disposition home or self-care (01) ==
PROVIDERS: Emergency Provider Student in an Organized Health Care Education/Training Program; PCP Family Medicine
DX: M17.12 Unilateral primary osteoarthritis, left knee (principal); M25.462 Effusion, left knee; M23.42 Loose body in knee, left knee; I10 Essential (primary) hypertension
CPT/HCPCS: 73562; 99283; 99282

== ENCOUNTER → 2023-10-14 13:50 | Outpatient (BNVA) | payer MEDICARE, MEDICAID, SELFPAY | PROVIDERS: PCP Family Medicine; Referring Provider Family Medicine; Visit Provider Student in an Organized Health Care Education/Training Program | DX: M25.462 Effusion, left knee (principal) | CPT/HCPCS: 20610; 36415; 85652; 87798; 99214; 85025; 86140; 86618; 87070; 87205; 89051; 89060 ==

== ENCOUNTER 2023-10-14 15:17 | Outpatient (CLI) | payer MEDICARE, MEDICAID, SELFPAY ==
[2023-10-14 15:47] LABS: Abs Immature Grans 0.02 10^3/uL (0.0-0.06); Absolute Basophil Count 0.04 10^3/uL (0.0-0.2); Absolute Eosinophil Count 0.19 10^3/uL (0.0-0.7); Absolute Lymphocyte Count 2.69 10^3/uL (1.2-3.4); Absolute Monocyte Count 0.53 10^3/uL (0.1-0.8); Absolute Neutrophil Count 3.49 10^3/uL (1.2-6.7); Basophils % 0.6; Eosinophils % 2.7; HCT 46.3 % (40.0-50.0); HGB 15.2 g/dL (13.5-17.5); Immature Grans % 0.3; Lymphocytes % 38.6; MCH 31.5 pg (27.0-33.0); MCHC 32.8 % (32.0-36.0); MCV 96 fL (80-95); MPV 9.8 fL (8.0-11.0); Monocytes % 7.6; Neutrophils % 50.2; Platelet Count 192 10^3/uL (130-400); RBC 4.83 10^6/uL (4.36-5.78); RDW-SD 45.6 fL; WBC 6.96 10^3/uL (4.4-10.8)
[2023-10-14 15:50] LABS: ESR 2 mm/hr (0-20)
[2023-10-14 16:11] LABS: C-Reactive Protein 0.34 mg/dL (0.0-0.3)
[2023-10-14 19:33] LABS: Clarity Clear; Crystals (BF) No Crystals seen; Source Synovial
[2023-10-14 19:34] LABS: Mononuclear Cells 99 %; Nucleated Cells 277 uL (0); Polynuclear Cells 1 %
[2023-10-15 11:11] LABS: Lyme Ab w Rflx to Lyme Confirm Negative (Negative)
[2023-10-16 22:02] LABS: Anaplasma phagocytophilum Negative (Negative); B. miyamotoi PCR Negative (Negative); Babesia divergens/MO-1 Negative (Negative); Babesia duncani Negative (Negative); Babesia microti Negative (Negative); Ehrlichia chaffeensis Negative (Negative); Ehrlichia ewingii/canis Negative (Negative); Ehrlichia muris eauclairensis Negative (Negative)
== END 2023-10-14 15:18 | disposition home or self-care (01) ==
LOC: LBO 15:18
PROVIDERS: PCP Family Medicine; Visit Provider Student in an Organized Health Care Education/Training Program
DX: M25.462 Effusion, left knee (principal); M25.461 Effusion, right knee
CPT/HCPCS: 36415; 85652; 87798; 85025; 86140; 86618; 87070; 87205; 89051; 89060

== ENCOUNTER → 2023-11-04 09:42 | Outpatient (BNVA) | payer MEDICARE, MEDICAID, SELFPAY | PROVIDERS: PCP Family Medicine; Referring Provider Family Medicine; Visit Provider Student in an Organized Health Care Education/Training Program | DX: M17.12 Unilateral primary osteoarthritis, left knee (principal) | CPT/HCPCS: 20610; J1030 ==

== ENCOUNTER 2023-11-26 10:20 | Day surgery (SDC) | payer MEDICARE, MEDICAID, SELFPAY ==
[2023-11-26] VITALS (10 sets, daily range): BP systolic 100–149; BP diastolic 66–99; PULSE 49–64; RESP 11–18; TEMP 36.4–36.6; O2SAT 92–98; BMI 25.8
--- NOTE | 2023-11-26 10:41 | W.ANESPRE ---
General Info Date of Service Date Performed: 11/26/23 Height: 6 ft 2 in Weight: 91.172 kg Body Mass Index (BMI): 25.8 Surgical Procedure: Operation Date: 11/26/23 14:10 Proposed Procedure Side Surgeon p Knee Arthroscopy, Synovectomy Right Tacho Levi MD Meds Allergies and Home Medications Allergies Allergy/AdvReac Type Severity Reaction Status Date / Time bee venom protein (honey bee) Allergy Severe Anaphylaxis Verified 11/26/23 10:55 chocolate flavor Allergy Severe RASH, H/A Verified 11/26/23 10:55 vardenafil HCl [From Levitra] Allergy Severe SWELLING, Verified 11/26/23 10:55 FLUSHING hydrocodone bitartrate AdvReac Severe H/A Verified 11/26/23 10:55 [From Vicodin] sertraline AdvReac Severe TREMOR Verified 11/26/23 10:55 ezetimibe [From Zetia] AdvReac Intermediate dizziness Verified 11/26/23 10:55 lovastatin AdvReac Mild MYALGIAS Verified 11/26/23 10:55 Qgyecde-GDK-AxM Reductase AdvReac Mild severe Verified 11/26/23 10:55 Inhibitor muscle [Pcgwzcr-Vzs-Otq Reductase cramps at Inhibitor] bedtime lactose AdvReac Unknown INTOLERANT Verified 11/26/23 10:55 Home Medication Medication Instructions Recorded ginkgo biloba leaf extract 60 mg 60 mg PO DAILY 03/15/14 tablet echinacea purpurea root 80 mg 80 mg PO BID PRN 10/24/14 capsule epinephrine 0.3 mg/0.3 mL 0.3 mg (0.3 mL) IM ONCE PRN 11/13/22 injection, auto-injector anaphylaxis #1 SYRG omeprazole 20 mg capsule,delayed 20 mg PO DAILY #90 caps 01/01/23 release tamsulosin 0.4 mg capsule 0.8 mg (2 x 0.4 mg) PO DAILY #180 01/01/23 caps mecobalamin (vitamin B12) 1,000 1,000 mcg PO DAILY 03/06/23 mcg chewable tablet sertraline 50 mg tablet 50 mg PO DAILY #90 tabs 07/22/23 lorazepam 1 mg tablet 0.5 mg (1/2 x 1 mg) PO QHS PRN 08/25/23 anxiety #10 tabs azelastine 137 mcg (0.1 %) nasal 1 spray intranasal bid 30 days #1 08/29/23 spray aerosol ea magnesium oxide 400 mg PO DAILY #90 tabs 09/04/23 pregabalin 50 mg capsule (Lyrica) 50 mg PO BID #180 caps 09/24/23 losartan 25 mg tablet 25 mg PO DAILY #90 tabs 11/11/23 Current Visit Medications: Current Medications Generic Name Dose Route Start Last Admin Trade Name Freq PRN Reason Stop Dose Admin Acetaminophen 1,000 mg 11/26/23 06:00 Acetaminophen 500 Mg Tab PO 12/26/23 05:59 PREOP LEIGHTON Celecoxib 400 mg 11/26/23 06:00 Celecoxib 200 Mg Cap PO 12/26/23 05:59 PREOP LEIGHTON Ringer's Solution 1,000 mls @ 80 mls/hr 11/26/23 06:00 IV 11/26/23 23:59 INFUSION LEIGHTON Cefazolin Sodium/Dextrose 2 gm in 50 mls @ 100 mls/hr 11/26/23 06:00 Ancef Duplex IVPB 11/26/23 23:59 PREOP LEIGHTON IV Miscellaneous Supplies 1 each 11/26/23 06:00 Iv Access IV 11/26/23 23:59 DIRECTED LEIGHTON Sodium Chloride 0 ml 11/26/23 06:00 Normal Saline Flush 10 Ml Syr IV 11/26/23 23:59 PRN PRN Sodium Chloride 0 ml 11/26/23 06:00 Normal Saline 10 Ml Vial IJ 11/26/23 23:59 DIRECTED PRN Sterile Water 0 ml 11/26/23 06:00 Water,Injection,Sterile 10 Ml Vial IJ 11/26/23 23:59 DIRECTED PRN PFSH Active Problems Active Problems: Problem Status Onset Code Effusion, left knee M25.462 Vasomotor rhinitis J30.0 Nonallergic rhinitis J31.0 Rhinorrhea J34.89 Crepitus of joint of right knee M23.8X1 Painful total knee replacement, right T84.84XA, Z96.651 Irritable colon K58.9 Palpitations R00.2 Dyspnea R06.00 Screening for colon cancer Z12.11 Erectile dysfunction N52.9 Tremor R25.1 Prediabetes R73.03 BPH w urinary obs/LUTS N40.1, N13.8 Diverticula of colon K57.30 TMJ (temporomandibular joint syndrome) M26.609 Left shoulder pain M25.512 Essential hypertension I10 Right lateral epicondylitis M77.11 Vitamin B12 deficiency E53.8 Medical History Medical History Adjustment disorder with depressed mood Peripheral neuropathy Hemarthrosis of knee, right Skin lesions, generalized Lower extremity neuropathy Ischemia of foot Frostbite of foot BPH (benign prostatic hyperplasia) Actinic Keratosis 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 01/15/22 Lower urinary tract symptoms (LUTS) Diastasis recti Insomnia Genital herpes simplex Chilblains Depressive disorder (10/16/99) anxiety Erectile dysfunction (10/21/14) Gastroesophageal reflux disease (07/13/11) 05/27 EGD ([facility]) Herpes zoster without complication (03/26/17) Hyperlipidemia (10/16/99) ARBOLEDA (nonalcoholic steatohepatitis) (03/16/18) Peyronie's disease (10/05/13) Dr Velazco Medical History Comments:: Per pt. states he gets chills big time, last time lasted an hour and a half Surgical History Surgical History Arthrofibrosis of total knee arthroplasty Status post manipulation under anesthesia DOS: 03/08/2022 History of total right knee replacement (01/15/22) DOS 01/15/22 Repair of inguinal hernia (~1985) left Appendectomy Tobacco Smoking/Tobacco Use Status: Never Passive smoking exposure: Yes Second hand exposure: Yes Alcohol Alcohol Intake: current Alcohol intake frequency: a few times a week Alcohol type: beer Substance Use Substance use: Never Substance use type: does not use Vital Signs and Lab Results Lab Results Blood Type / Crossmatch: No Data to Display Complete Blood Count: No Data to Display Complete Metabolic Panel: No Data to Display Liver Function Panel: No Data to Display Coagulation Panel: No Data to Display Cardiac Panel: No Data to Display Arterial Blood Gas: No Data to Display Venous Blood Gas: No Data to Display Pancreas Panel: No Data to Display Thyroid Panel: No Data to Display Infectious Disease: No Data to Display Blood Cultures: No Data to Display Toxicology Panel: No Data to Display Imaging and Studies Imaging and Studies Study information below may be from another EMR and interpreted by another provider. Please see original notes in EMR for more complete details. Pulmonary Function Summary: 12/06: normal. Anesthesia Assessment and Plan Anesthesia History Personal History: No History of Anesthesia Complications and Other Family History: No Family History of Anesthesia Complications Exercise Tolerance Exercise Tolerance: Metabolic Equivalents>4 Pertinent Negatives Pertinent Negatives: No Symptoms of GERD (treated with no breakthrough) Cardiac & Pulmonary Exam Cardiac Exam: Normal S1/S2 Heart Sounds Pulmonary Exam: Clear Bilateral Breath Sounds Implantable Cardiac Device Does patient have a Pacemaker or an ICD?: No Airway Exam Known Difficult Airway: No Mallampati Class: 2 Mouth Opening: Normal (> 3cm) Thyromental Distance: Greater than 3 cm Neck Range of Motion: Full ROM Neck Circumference: Normal Teeth Condition: Normal Dentition ASA Classification ASA Score: ASA 2 Emergency Case?: No NPO Status NPO Status: NPO Clears >2 hours, Solids >8 hours Anesthesia Plan Resuscitation Status: Full Code Anesthesia Technique: General Anesthesia Airway Planned: LMA Monitors Used: Standard Monitors Preoperative Comments:: 66 yo male for knee scope Sig PMHx: anxiety/depression (lorazepam), HTN (amlodipine), palpitations, ARBOLEDA, GERD (omeprazole), pre DM, never smoker, occ EtOH. Previous Anes: severe shaking at home after. - colo, prop, ephedrine/glyco, natural airway. - knee manip, prop, succ, sevo, easy mask - TKA, spinal/chloro, prop sedation, natural airway.
[2023-11-26] MEDS: Lactated Ringers 1,000 ML 80 ML IV (11:09)
[2023-11-26] MEDS: Celecoxib 200 MG CAP 400 MG PO (11:11)
[2023-11-26] MEDS: Acetaminophen 500 MG TAB 1000 MG PO (11:12)
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
--- NOTE | 2023-11-26 12:16 | W.PM.DSUDISC ---
Date of service: 11/26/23 Time of Service: 12:16 Discharge Plan Disposition Patient Disposition: Home Condition: Good Discharge Details Reason For Visit: Arthroscopic synovectomy right TKR Attending Provider: Tacho Levi Primary Care Provider: Christiano Cardenas Home Meds and New Rx's Prescriptions: New acetaminophen 500 mg tablet 1,000 mg PO TID Qty: 90 0RF ibuprofen 600 mg tablet 600 mg PO TID PRN (Reason: pain) Qty: 90 0RF oxycodone 5 mg tablet 5 mg PO Q8H MDD 15mg PRN (Reason: pain) Qty: 10 0RF Continued omeprazole 20 mg capsule,delayed release(DR/EC) 20 mg PO DAILY Qty: 90 3RF tamsulosin 0.4 mg capsule 0.8 mg PO DAILY Qty: 180 3RF Rx Instructions: dose increase 10/23/21 mecobalamin (vitamin B12) 1,000 mcg tablet,chewable 1,000 mcg PO DAILY pregabalin [Lyrica] 50 mg capsule 50 mg PO BID Qty: 180 1RF epinephrine 0.3 mg/0.3 mL auto-injector 0.3 mg IM ONCE PRN (Reason: anaphylaxis) Qty: 1 0RF Rx Instructions: DISPENSE ONE PACKAGE magnesium oxide 400 mg magnesium tablet 400 mg PO DAILY Qty: 90 3RF azelastine 137 mcg (0.1 %) aerosol,spray 1 spray intranasal bid 30 Days Qty: 1 2RF ginkgo biloba leaf extract 60 MG tablet 60 mg PO DAILY echinacea purpurea root 80 MG capsule 80 mg PO BID PRN sertraline 50 mg tablet 50 mg PO DAILY Qty: 90 3RF lorazepam 1 mg tablet 0.5 mg PO QHS PRN (Reason: anxiety) Qty: 10 0RF losartan 25 mg tablet 25 mg PO DAILY Qty: 90 3RF Discharge Instructions Stand Alone Forms: [facility] Referrals: Tacho Levi MD [ [facility] STAFF PHYSICIAN] - Equipment/Supplies: Partial Weight Bearing Crutches Activity:: Activity as Tolerated Remove Dressings/Wound Care:: 72 hours Shower/Bathe:: 72 hours Diet:: As Tolerated Discharge Orders Discharge Orders: Discharge Order (Routine); Ordered 11/26/23 Ordered By: Jayro Arroyo DS: Diagnosis Discharge Diagnosis (1) Crepitus of joint of right knee: Status: Acute (2) Painful total knee replacement, right: Status: Acute
[2023-11-26] MEDS: ceFAZolin 2 GM/50 ML BAG IVPB (12:27)
[2023-11-26] MEDS: Bupivacaine 0.5% Pres-Free 30 ML VIAL (13:01)
[2023-11-26] MEDS: EPINEPHrine 10 MG/10 ML ML (13:30)
--- NOTE | 2023-11-26 13:56 | W.ANESPOSTOP ---
Postoperative Evaluation Date, Time and Location Date Performed: 11/26/23 Time Performed: 13:56 Patient Location: PACU Vital Signs Most Recent Imported Vital Signs: Most Recent Vital Signs Temp Pulse Resp BP Pulse Ox 36.6 C 53 L 15 114/75 96 11/26/23 13:49 11/26/23 13:49 11/26/23 13:49 11/26/23 13:49 11/26/23 13:49 Pain Score Most Recent Pain Score: Most Recent Pain Score Pain Level 7 11/26/23 10:39 Assessment Mental Status: Awake (Alert & Oriented to Patient Baseline) Airway and Respiratory Function: Patent airway with normal (patient baseline) respiratory exam Cardiovascular Function: Hemodynamically Stable Hydration Status: Adequately Hydrated Nausea & Vomiting: No Nausea or Vomiting Pain: Pain is tolerable per patient Peripheral Nerve Block: Patient did not receive a nerve block
--- NOTE | 2023-11-26 14:06 | W.PM.OP ---
Date of service: 11/26/23 Time of Service: 12:40 Operative Note Operative Note DATE OF PROCEDURE: 11/26/23 PRE-OP DIAGNOSIS: Arthrofibrosis and Crepitus of Knee Replacement - RIGHT POST-OP DIAGNOSIS: same PROCEDURE: Arthroscopic Synovectomy of 3 Compartments - RIGHT Knee SURGEON: Tacho Levi ANESTHESIA TYPE: General LMA/ETT Refer to Anesthesia Record ESTIMATED BLOOD LOSS: 0 PATHOLOGY: none sent COMPLICATIONS: None Patient was transported to: PACU Patient's condition: stable Indications: I have seen Pavel in clinic for symptoms of crepitus and stiffness of the knee following knee replacement surgery. Nonoperative measures were exhausted but disability due to lack of motion persisted. I discussed knee arthroscopy with synovectomy with the patient. I reviewed the risks of the procedure to include, but not limited to, bleeding, infection, pain, continued stiffness, recurrence, blood clot. Despite these risks, the patient elected to proceed. Findings: Dense adhesive scar tissue seen throughout the knee, focused anteriorly and around the patella and adjacent to the joint line, more lateral than medial. Procedure Description: Pavel was greeted in the preoperative holding area where the correct side was identified and marked. The consent was reviewed with the patient and signed. The history and physical was updated. All questions were answered. Pavel was taken back to the operating room. The patient was placed into the supine position on the operating room table. All bony prominences were well padded. Prophylactic antibiotics in the form of Cefazolin were administered. The right leg was then prepped with Chloraprep and draped in a standard fashion with stockinette and extremity drape. A timeout to confirm correct identity, side and site, procedure, allergies, anesthesia, and medical concerns was performed. The leg was placed into a pneumatic leg sommers, [id number]. A standard lateral portal was made at the lateral border of the patella tendon in line with the inferior pole of the patella, soft spot. The skin and deep tissue was incised sharply and the blunt trochar was inserted atraumatically. At this point had visualization of the femoral component. A superolateral portal was then established with spinal needle localization just superior and lateral to the patella. A knife was taken down through the skin and soft tissue to enter the knee joint. Starting in the superior compartment above the femoral component and anterior to the femur I released all scarring between the anterior femoral synovium and the overlying extensor mechanism. This was taken through all of any noticeable scar tissue until the superior patellar pouch was fully released and mobile. This resection was carried out mostly with electrocautery as well as shaver. There was densities of tissue seen within this region between the patella and the medial lateral gutters. Once this was released fully from lateral to medial superiorly I then continued working down the lateral gutter. All scar tissue in the lateral gutter was released so there is normal space and movement between the capsular tissues and the edge of the femoral component and femur. This was taken down through the lateral gutter such that I was able to identify the polyethylene to its posterior corner. Once again, all scar tissue in this area was resected so the polyethylene was easily visible and there is no interposed tissue in the back or the polyethylene was identified. I then continued to work anteriorly. To continue the synovectomy from the lateral compartment to the anterior compartment into the medial compartment, I placed a medial portal under spinal needle localization. Once this was in place it became another working portal and I continued the synovectomy through the anterior compartment to the medial compartment. Once again, I freed up the medial gutter so I was able to visualize the polyethylene from the anterior posterior margins. There is no interposed tissue after full synovectomy was performed. Adhesions between the capsule and the femur were released. This was continued up the medial gutter until it met up with the releases performed previously in the superior compartment. Any remnant scar tissue from around the patella was then removed with a shaver and electrocautery. The arthroscope was brought back into the suprapatellar pouch and the leg was in full extension. The knee was thoroughly irrigated with the arthroscopic fluid on high flow and pressure. Inflow was stopped and excess fluid was removed. The wounds were closed with 4-0 Nylon. 0.25% bupivacaine was injected around the portal sites and into the knee. The wounds were dressed with Xeroform, 4x4 gauze, ABD pad, Kerlix and an GISELLE wrap. A cryo-cuff was applied. The patient tolerated the procedure well and was returned to the Same Day Surgery area in a stable condition suffering no known complication..
[2023-11-26] MEDS: fentaNYL 100 MCG/2 ML VIAL IVP (14:12)
== END 2023-11-26 16:00 | disposition home or self-care (01) ==
PROVIDERS: PCP Family Medicine; Visit Provider Student in an Organized Health Care Education/Training Program
PROC: (CPT 29870; principal; 2023-11-26 14:00)
DX: T84.82XA Fibrosis due to internal orthopedic prosthetic devices, implants and grafts, initial encounter (principal); T84.84XA Pain due to internal orthopedic prosthetic devices, implants and grafts, initial encounter; Z96.651 Presence of right artificial knee joint; I11.0 Hypertensive heart disease with heart failure; R73.03 Prediabetes; M65.861 Other synovitis and tenosynovitis, right lower leg
CPT/HCPCS: 29876; J0665; J0690; J1100; J1885; J2001; J2250; J2371; J2405; J2704; J3010; J3475

== ENCOUNTER → 2023-12-08 08:47 | Outpatient (BNVA) | payer MEDICARE, MEDICAID, SELFPAY | PROVIDERS: PCP Family Medicine; Referring Provider Family Medicine; Visit Provider Student in an Organized Health Care Education/Training Program | DX: Z47.1 Aftercare following joint replacement surgery (principal); T84.84XA Pain due to internal orthopedic prosthetic devices, implants and grafts, initial encounter; Z96.651 Presence of right artificial knee joint ==

== ENCOUNTER → 2024-01-27 09:11 | Outpatient (BNVA) | payer MEDICARE, MEDICAID, SELFPAY | PROVIDERS: PCP Family Medicine; Referring Provider Family Medicine; Visit Provider Student in an Organized Health Care Education/Training Program | DX: M23.92 Unspecified internal derangement of left knee (principal) | CPT/HCPCS: 99213 ==

== ENCOUNTER → 2024-01-28 14:03 | Outpatient (BNVA) | payer MEDICARE, MEDICAID, SELFPAY | PROVIDERS: PCP Family Medicine; Referring Provider Family Medicine; Visit Provider Nurse Practitioner Gerontology | DX: N40.1 Benign prostatic hyperplasia with lower urinary tract symptoms (principal); N13.8 Other obstructive and reflux uropathy; N52.9 Male erectile dysfunction, unspecified | CPT/HCPCS: 51798; 99214 ==

== ENCOUNTER → 2024-02-10 02:23 | Outpatient (CLI) | payer MEDICARE, MEDICAID, SELFPAY ==
--- NOTE | 2024-02-10 07:15 | DI.MRI_ITS ---
Exam(s) MR LOWER JOINT LT WO EXAM: MR LOWER JOINT LT WO CLINICAL HISTORY: ? MENISCAL TEAR,INTERNAL DERANGEMENT LT KNEE,M23.92. TECHNIQUE: Multiplanar multisequence MRI was performed. COMPARISON: CR XR KNEE LT 3V AP,LAT,PRAFUL from 10/01/2023 FINDINGS: BONES: There is no fracture or contusion pattern. JOINTS: There is thinning of the articular cartilage overlying the patella with subchondral edema pre sent. There is a large cartilaginous defect seen over the lateral femur at the articular surface. I t measures 1.4 cm in diameter. There is also thinning of the articular cartilage predominantly in th e medial femoral tibial joint. There is a large joint effusion. There are loose body seen within th e joint particularly anterior to the anterior cruciate ligament. The largest measures 8 mm. TENDONS: Extensor mechanism: Unremarkable. Medial retinaculum: Unremarkable. Lateral retinaculum: Unremarkable. Popliteus: Unremarkable. MUSCLES: Unremarkable. MENISCI: There is a tear in the body of the medial meniscus. Degenerative signal is also noted in th e menisci. SOFT TISSUES: There is mild edema seen in the soft tissues anterior to the patella. This may represe nt a prepatellar bursitis. LIGAMENTS: Anterior Cruciate: There is mild hyperintense signal seen within the ACL which may represent a sprain or partial tear. Posterior Cruciate: Unremarkable. Medial Collateral:Unremarkable. Lateral Collateral: Unremarkable. OTHER: IMPRESSION: 1. Tear of the body of the medial meniscus. 2. Large joint effusion with multiple loose bodies predominantly anterior to the ACL. 3. Mild hyperintense signal seen in the ACL which may represent a sprain or partial tear. 4. Degenerative changes seen within the joint particularly the patellofemoral joint. 5. Large cartilage defect overlying the articular surface of the lateral femur. DATA REPOSITORY:
== END ==
PROVIDERS: PCP Family Medicine; Visit Provider Student in an Organized Health Care Education/Training Program
DX: S83.241D Other tear of medial meniscus, current injury, right knee, subsequent encounter (principal); X58.XXXD Exposure to other specified factors, subsequent encounter
CPT/HCPCS: 73721

== ENCOUNTER → 2024-02-18 13:39 | Outpatient (BNVA) | payer MEDICARE, MEDICAID, SELFPAY | PROVIDERS: PCP Family Medicine; Referring Provider Family Medicine; Visit Provider Student in an Organized Health Care Education/Training Program | DX: M23.42 Loose body in knee, left knee (principal); M23.92 Unspecified internal derangement of left knee | CPT/HCPCS: 99213 ==

== ENCOUNTER 2024-02-24 15:59 | Outpatient (CLI) | payer MEDICARE, MEDICAID, SELFPAY ==
--- NOTE | 2024-02-24 13:15 | DI.RAD_ITS ---
Exam(s) XR SHOULDER RT COMPLETE 2+V EXAM: XR SHOULDER RT COMPLETE 2+V CLINICAL HISTORY: BILATERAL SHOULDER PAIN. TECHNIQUE: 2D digital imaging was performed. Two views. COMPARISON: No exams were available for comparison FINDINGS: BONES: No acute fracture is present. No bony destructive lesion is seen. JOINTS: No dislocation present. Glenohumeral joint space is maintained. Minimal spurring at the AC joint. SOFT TISSUE: Normal. IMPRESSION: Mild degenerative changes at the AC joint. DATA REPOSITORY: RADIATION DOSE DELIVERED:
--- NOTE | 2024-02-24 13:15 | DI.RAD_ITS ---
Exam(s) XR SHOULDER LT COMPLETE 2+V EXAM: XR SHOULDER LT COMPLETE 2+V CLINICAL HISTORY: BILATERAL SHOULDER PAIN. TECHNIQUE: 2D digital imaging was performed. Three views. COMPARISON: CR XR SHOULDER RT COMPLETE 2+V from 02/24/2024 FINDINGS: BONES: No acute fracture is present. No bony destructive lesion is seen. JOINTS: No dislocation present. Mild spurring at the AC joint. Glenohumeral joint space is maintain ed. No significant degenerative changes. SOFT TISSUE: Normal. IMPRESSION: Degenerative changes of the AC joint DATA REPOSITORY: RADIATION DOSE DELIVERED:
== END 2024-02-24 16:00 | disposition home or self-care (01) ==
LOC: DIORS 15:59
PROVIDERS: PCP Family Medicine; Visit Provider Student in an Organized Health Care Education/Training Program
DX: M67.921 Unspecified disorder of synovium and tendon, right upper arm; M67.922 Unspecified disorder of synovium and tendon, left upper arm
CPT/HCPCS: 99213; 73030

== ENCOUNTER → 2024-03-02 08:32 | Outpatient (BNVA) | payer MEDICARE, SELFPAY | PROVIDERS: PCP Family Medicine; Visit Provider Nurse Practitioner Adult Health | DX: G62.9 Polyneuropathy, unspecified (principal) | CPT/HCPCS: 99213 ==

== ENCOUNTER → 2024-03-29 10:23 | Outpatient (BNVA) | payer MEDICARE, SELFPAY | PROVIDERS: PCP Family Medicine; Visit Provider Student in an Organized Health Care Education/Training Program | DX: Z47.1 Aftercare following joint replacement surgery (principal); T84.84XD Pain due to internal orthopedic prosthetic devices, implants and grafts, subsequent encounter; Z96.651 Presence of right artificial knee joint | CPT/HCPCS: 99213 ==

== ENCOUNTER 2024-09-09 09:58 | Outpatient (CLI) | payer MEDICARE, SELFPAY ==
[2024-09-09 13:37] LABS: CREATININE 1.2 mg/dL (0.70-1.30); Calculated LDL 92 mg/dL (<100); Cholesterol 196 mg/dL (<200); Estimated GFR 65.87 (mL/min/1.73m2); HDL Cholesterol 43 mg/dL (40-60); Potassium 3.9 mmol/L (3.5-5.1); Triglyceride 307 mg/dL (<150)
[2024-09-09 21:37] LABS: HIV-1/2 Ag & Ab Screen Negative (Negative)
[2024-09-09 21:39] LABS: HBs Antibody, Quant <3.1 mIU/mL (See Note); Hep B Surface Ab Negative (See Note); Hepatitis B Core Antibody Negative (Negative); Hepatitis B Surface Antigen Negative (Negative)
[2024-09-09 21:57] LABS: Hepatitis C Ab w Rflx HCV PCR Negative (Negative)
[2024-09-10 10:42] LABS: Syphilis Serology (RPR) Negative (Negative)
== END 2024-09-09 09:59 | disposition home or self-care (01) ==
PROVIDERS: PCP Family Medicine; Referring Provider Family Medicine; Visit Provider Family Medicine
DX: Z12.5 Encounter for screening for malignant neoplasm of prostate (principal); E78.5 Hyperlipidemia, unspecified; Z11.59 Encounter for screening for other viral diseases; I10 Essential (primary) hypertension; Z00.00 Encounter for general adult medical examination without abnormal findings; E03.9 Hypothyroidism, unspecified; R41.3 Other amnesia
CPT/HCPCS: 36415; 80061; 84153; 86704; 86706; 86803; 87340; 87389; 82565; 84132; 84443; 86592

== ENCOUNTER → 2024-11-30 08:58 | Outpatient (BNVA) | payer MEDICARE, SELFPAY | PROVIDERS: PCP Family Medicine; Visit Provider Nurse Practitioner Adult Health | DX: G62.9 Polyneuropathy, unspecified (principal) | CPT/HCPCS: 99213 ==

== ENCOUNTER 2025-01-10 16:13 | Emergency (ER) | payer MEDICARE, SELFPAY ==
[2025-01-10 16:25] VITALS: BP 129/80; PULSE 77; RESP 16; TEMP 36.5; O2SAT 93
--- NOTE | 2025-01-10 17:01 | DI.RAD_ITS ---
Exam(s) XR KNEE LT 3V AP,LAT,PRAFUL EXAM: XR KNEE LT 3V AP,LAT,PRAFUL CLINICAL HISTORY: Medial joint line pain. TECHNIQUE: 2D digital imaging was performed of the left knee. Three images were obtained. AP, late ral and PA tunnel views were obtained. COMPARISON: CR XR KNEE LT 3V AP,LAT,PRAFUL from 10/01/2023 FINDINGS: BONES: No acute fracture is present. No bony destructive lesion is seen. JOINTS: There are degenerative changes in the knee characterized by osteophytes and joint space narro wing. The findings are most marked at the patellofemoral joint. There is a small joint effusion. T here again seen loose bodies in the anterior joint space. SOFT TISSUE: Normal. IMPRESSION: 1. There are stable degenerative changes in the left knee. 2. Small joint effusion and loose bodies. DATA REPOSITORY: RADIATION DOSE DELIVERED:
[2025-01-10] MEDS: Acetaminophen 500 MG TAB 1000 MG PO (17:29)
[2025-01-10] MEDS: Ibuprofen 600 MG TAB PO (17:29)
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
== END 2025-01-10 18:23 | disposition home or self-care (01) ==
PROVIDERS: Emergency Provider Emergency Medicine; PCP Family Medicine
DX: S83.412A Sprain of medial collateral ligament of left knee, initial encounter (principal); I10 Essential (primary) hypertension; E78.5 Hyperlipidemia, unspecified; Z79.82 Long term (current) use of aspirin; V68.4XXA Person boarding or alighting a heavy transport vehicle injured in noncollision transport accident, initial encounter
CPT/HCPCS: 73562; 99283

== ENCOUNTER → 2025-01-19 13:03 | Outpatient (BNVA) | payer MEDICARE, SELFPAY | PROVIDERS: PCP Family Medicine; Referring Provider Family Medicine | DX: S89.92XA Unspecified injury of left lower leg, initial encounter (principal); W17.89XA Other fall from one level to another, initial encounter | CPT/HCPCS: 99213 ==

== ENCOUNTER 2025-01-27 09:35 | Outpatient (CLI) | payer MEDICARE, SELFPAY ==
--- NOTE | 2025-01-27 10:00 | DI.MRI_ITS ---
Exam(s) MR LOWER JOINT LT WO EXAM: MR LOWER JOINT LT WO CLINICAL HISTORY: S89.92XA Injury LLL, Medial collateral ligament of LT knee, PAIN. TECHNIQUE: Multiplanar multisequence MRI was performed. COMPARISON: MR MR LOWER JOINT LT WO from 02/10/2024 CR XR KNEE LT 3V AP,LAT,PRAFUL from 01/10/2025 FINDINGS: BONES: There is no fracture or contusion pattern. JOINTS: There is thinning of the articular cartilage at the patellofemoral joint with subchondral roger ma and osteophytes present. There is a moderate size joint effusion. There are several loose bodies seen in the anterior joint space. They lie in the midline anterior to the anterior cruciate ligamen t. They measure up to 9 mm in size. TENDONS: Extensor mechanism: Unremarkable. Medial retinaculum: Unremarkable. Lateral retinaculum: Unremarkable. Popliteus: Unremarkable. MUSCLES: Unremarkable. MENISCI: There is again seen heterogeneous signal in the body of the medial meniscus posteriorly. Th ere is also decrease in size. The lateral meniscus appears stable. No definite evidence of an acute tear is seen. SOFT TISSUES: There is edema seen in the soft tissues anteriorly and laterally. LIGAMENTS: Anterior Cruciate: Unremarkable. Posterior Cruciate: Unremarkable. Medial Collateral:Unremarkable. Lateral Collateral: Unremarkable. OTHER: IMPRESSION: 1. The medial collateral ligament is intact. 2. Heterogeneous signal is again seen in the body of the of the medial meniscus posteriorly. There i s a decreased in size. Findings are suspicious for tear versus postsurgical change. Correlation wit h the patient's surgical history is also recommended. 3. Moderate joint effusion. 4. Arthrosis of the patellofemoral joint. 5. Loose bodies in the anterior joint space. DATA REPOSITORY:
== END 2025-01-27 09:55 ==
LOC: DI 09:35
PROVIDERS: PCP Family Medicine; Visit Provider Student in an Organized Health Care Education/Training Program
DX: S89.92XA Unspecified injury of left lower leg, initial encounter (principal); X58.XXXA Exposure to other specified factors, initial encounter; M17.12 Unilateral primary osteoarthritis, left knee
CPT/HCPCS: 73721

== ENCOUNTER → 2025-02-03 13:59 | Outpatient (BNVA) | payer MEDICARE, SELFPAY | PROVIDERS: PCP Family Medicine; Referring Provider Family Medicine; Visit Provider Student in an Organized Health Care Education/Training Program | DX: M23.92 Unspecified internal derangement of left knee (principal); M17.12 Unilateral primary osteoarthritis, left knee; M23.42 Loose body in knee, left knee; S83.242A Other tear of medial meniscus, current injury, left knee, initial encounter; W17.89XA Other fall from one level to another, initial encounter | CPT/HCPCS: 20610; J1010 ==

== ENCOUNTER → 2025-06-30 11:02 | Outpatient (BNVA) | payer MEDICARE, SELFPAY | PROVIDERS: PCP Family Medicine; Referring Provider Family Medicine; Visit Provider Student in an Organized Health Care Education/Training Program | DX: M23.92 Unspecified internal derangement of left knee (principal); S83.242A Other tear of medial meniscus, current injury, left knee, initial encounter | CPT/HCPCS: 99213 ==

== ENCOUNTER 2025-09-15 10:26 | Outpatient (CLI) | payer MEDICARE, SELFPAY ==
[2025-09-15 14:48] LABS: Anion Gap 6.5 mmol/L (3-11); BUN 23 mg/dL (7-18); CO2 30.5 mmol/L (21.0-32.0); Calcium 9.1 mg/dL (8.5-10.1); Chloride 105 mmol/L (98-107); Glucose 75 mg/dL (74-106); Potassium 3.8 mmol/L (3.5-5.1); Sodium 142 mmol/L (136-145)
[2025-09-16 09:37] LABS: PSA, Screening 0.9 ng/mL (<=4.5)
== END 2025-09-15 10:27 | disposition home or self-care (01) ==
LOC: LOS 10:28
PROVIDERS: PCP Family Medicine; Visit Provider Family Medicine
DX: Z12.5 Encounter for screening for malignant neoplasm of prostate (principal); E87.1 Hypo-osmolality and hyponatremia
CPT/HCPCS: 36415; 80048; 84153

== ENCOUNTER → 2025-10-04 02:13 | Outpatient (CLI) | payer MEDICARE, SELFPAY ==
--- NOTE | 2025-10-04 07:15 | DI.MRI_ITS ---
Exam(s) MR BRAIN WO/W EXAM: MR BRAIN WO/W CLINICAL HISTORY: headache, new onset, postcoital,r51.9. TECHNIQUE: Multiplanar multisequence MRI of the brain was performed. CONTRAST MATERIAL: IV Contrast: 19 ML of Dotarem contrast administered. COMPARISON: No exams were available for comparison FINDINGS: VENTRICLES AND EXTRA AXIAL SPACES: Normal in size and morphology for the patient's age. HEMORRHAGE: None. CEREBRAL PARENCHYMA: No focus of restricted diffusion to suggest acute infarct. No space-occupying lesion identified. There are scattered foci of high signal in the white matter, nonspecific but most commonly reflecting chronic microvascular changes. BRAINSTEM/CEREBELLUM: Normal. CALVARIUM: Normal. ENHANCEMENT: No suspicious enhancement identified. VISUALIZED PARANASAL SINUSES/MASTOIDS: Clear. Orbits: Unremarkable. Pituitary: Not enlarged. Vasculature: Normal flow voids. IMPRESSION: High signal foci in the white matter, likely chronic microvascular changes. No acute abnormality is identified. DATA REPOSITORY:
[2025-10-04] MEDS: Gadoterate meglumine 20 ML SYRINGE 19 ML IVP (13:59)
[2025-10-04] MEDS: Normal Saline Flush 10 ML SYR IVP (14:00)
== END ==
LOC: DI 02:13
PROVIDERS: PCP Family Medicine; Visit Provider Family Medicine
DX: R51.9 Headache, unspecified (principal); R90.82 White matter disease, unspecified; I25.85 Chronic coronary microvascular dysfunction
CPT/HCPCS: 70553